=== PATIENT | male | born 1950 | race Caucasian/White ===

== ENCOUNTER 2016-07-20 15:38 | Inpatient (IN) | payer MEDICARE, OTHER ==
[2016-07-20] MEDS ORDERED: 0.9 % SODIUM CHLORIDE 1,000 ML BAG IV ONE (15:46)
--- NOTE | 2016-07-20 15:46 | Emergency Department Record ---
History of Present Illness - General Chief complaint: Nausea, Vomiting, Diarrhea Stated complaint: VOMITING,NAUSEA Time Seen by Provider: 07/20/16 15:44 Source: Patient, RN notes reviewed - History of Present Illness MD complaint: Vomiting - Related Data Home Medications Medication Instructions Recorded Confirmed Last Taken Aspirin [Ecotrin] 325 mg PO DAILY 11/27/14 01/31/16 1 Day Ago Guar Gum [Fiber] 2 gm PO DAILY 11/27/14 01/31/16 1 Day Ago Multivitamin [Multi-Vitamin Daily] 1 each PO DAILY 11/27/14 01/31/16 1 Day Ago Vitamin E (Dl,Tocopheryl Acet) 1,000 unit PO DAILY 11/27/14 01/31/16 1 Day Ago [Vitamin E] Cholecalciferol (Vitamin D3) 50,000 unit PO Q4WEEK cap 10/12/15 01/31/16 1 Day Ago [Vitamin D3] Lisinopril [Zestril] 10 mg PO QD tab 04/14/16 Unknown Allergies Allergy/AdvReac Type Severity Reaction Status Date / Time amoxicillin [AMOXICILLIN] Allergy Severe NAUSEA AND Unverified 04/14/16 08:53 VOMITING Past Medical History - SOCIAL HISTORY Smoking Status: Never smoker Drug Use: None - RESPIRATORY Hx Respiratory Disorders: Yes Hx Pneumonia: Yes - CARDIOVASCULAR Hx Cardio Disorders: Yes Hx Hypertension: Yes - NEURO Hx Neuro Disorders: No 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, 2002, 2007) - GI Hx GI Disorders: Yes Hx Diverticulitis: Yes Hx Hiatal Hernia: Yes - Hx Genitourinary Disorders: No Hx Prostate Problems: Yes (BPH) Hx Renal Disease: Yes (Poor RF 12/2015, but better now (dehydration)) - ENDOCRINE Hx Endocrine Disorders: No - MUSCULOSKELETAL Hx Musculoskeletal Disorders: No - PSYCH Hx Psych Problems: No - HEMATOLOGY/ONCOLOGY Hx Hematology/Oncology Disorders: No Family Medical History Hx Diabetes: Mother, Grandparents Hx Stroke: Mother Disposition Forms: Patient Portal Access
[2016-07-20 16:17] LABS: HEMATOCRIT 33.6 % (42.0-52.0); HEMOGLOBIN 11.1 gm/dl (14.0-18.0); MEAN CELL VOLUME 90.6 fl (81-97); MEAN CORPUSCULAR HEMOGLOBIN 29.9 pg (27-33); MEAN PLATELET VOLUME 10.6 fl (7.4-10.4); PLATELET COUNT 169 K/uL (130-400); RED BLOOD COUNT 3.71 M/uL (4.40-5.70); RED CELL DISTRIBUTION WIDTH 13.1 % (11.5-14.5); URINE APPEARANCE CLEAR; URINE BILIRUBIN NEGATIVE (NEGATIVE); URINE BLOOD TRACE-I (NEGATIVE); URINE COLOR YELLOW; URINE GLUCOSE (UA) NEGATIVE (NEGATIVE); URINE KETONE NEGATIVE (NEGATIVE); URINE LEUKOCYTE ESTERASE NEGATIVE (NEGATIVE); URINE NITRITE NEGATIVE (NEGATIVE); URINE UROBILINOGEN 0.2 E.U./dL (0.20 - 1.00); WHITE BLOOD COUNT W/O DIFF 7.1 K/uL (4.2-12.2)
--- NOTE | 2016-07-20 16:18 | Emergency Department Record ---
History of Present Illness - General Chief complaint: Nausea, Vomiting, Diarrhea Stated complaint: VOMITING,NAUSEA Time Seen by Provider: 07/20/16 15:44 Source: Patient, RN notes reviewed Mode of Arrival: EMS - History of Present Illness Initial comments: vomiting times twenty with total body aches and headache and no specific chest pain. Patient also has a cough. No diarhea , No trauma and balance was off and weak and could not walk to the bathroom and ambulance called. EMS gave him zofran and the nausea is better. Still very weak. Patient has had multiple colon surgeries with colostomy and reversal 5 years ago MD complaint: Vomiting Onset/Timin -: Days(s) Description of Vomiting: Watery Location: Diffuse, Epigastric Severity scale (1-10): 8 Quality: Aching Consistency: Constant Improves with: None - Related Data Home Medications Medication Instructions Recorded Confirmed Last Taken Aspirin [Ecotrin] 325 mg PO DAILY 11/27/14 07/20/16 1 Day Ago Guar Gum [Fiber] 2 gm PO DAILY 11/27/14 07/20/16 1 Day Ago Multivitamin [Multi-Vitamin Daily] 1 each PO DAILY 11/27/14 07/20/16 1 Day Ago Vitamin E (Dl,Tocopheryl Acet) 1,000 unit PO DAILY 11/27/14 07/20/16 1 Day Ago [Vitamin E] Cholecalciferol (Vitamin D3) 50,000 unit PO Q4WEEK cap 10/12/15 07/20/16 1 Day Ago [Vitamin D3] Lisinopril [Zestril] 10 mg PO QD tab 04/14/16 07/20/16 1 Day Ago Allergies Allergy/AdvReac Type Severity Reaction Status Date / Time amoxicillin [AMOXICILLIN] Allergy Severe NAUSEA AND Verified 07/20/16 15:49 VOMITING Travel Screening - Travel/Exposure Within Last 30 Days Have you traveled within the last 30 days?: No - Travel/Exposure Within Last Year Have you traveled outside the [place] in the last year?: No - Additonal Travel Details Have you been exposed to anyone with a communicable illness?: No - Travel Symptoms Symptom Screening: None Review of Systems Reviewed: No additional complaints except as noted below Constitutional: Reports: As per HPI, Chills, Malaise. Denies: Fever, Night sweats, Weakness, Weight change Eyes: Reports: As per HPI. Denies: Eye discharge, Eye pain, Photophobia, Vision change ENT: Reports: As per HPI, Congestion. Denies: Dental pain, Ear pain, Epistaxis , Hearing loss, Throat pain Respiratory: Reports: As per HPI, Cough. Denies: Dyspnea, Hemoptysis, Stridor, Wheezes Cardiovascular: Reports: As per HPI. Denies: Arrhythmia, Chest pain, Dyspnea on exertion, Edema, Murmurs, Orthopnea, Palpitations, Paroxysmal nocturnal dyspnea, Rheumatic Fever, Syncope Endocrine: Reports: As per HPI, Fatigue. Denies: Heat or cold intolerance, Polydipsia, Polyuria Gastrointestinal: Reports: As per HPI, Abdominal pain, Vomiting. Denies: Constipation, Diarrhea, Hematemesis, Hematochezia, Melena, Nausea Genitourinary: Reports: As per HPI. Denies: Dysuria, Frequency, Hematuria, Incontinence, Retention, Testicular pain, Testicular mass, Urgency Musculoskeletal: Reports: As per HPI. Denies: Arthralgia, Back pain, Gout, Joint swelling, Myalgia, Neck pain Skin: Reports: As per HPI. Denies: Bruising, Change in color, Change in hair/ nails, Lesions, Pruritus, Rash Neurological: Reports: As per HPI. Denies: Abnormal gait, Confusion, Headache, Numbness, Paresthesias, Seizure, Tingling, Tremors, Vertigo, Weakness Psychiatric: Reports: As per HPI. Denies: Anxiety, Auditory hallucinations, Depression, Homicidal thoughts, Suicidal thoughts, Visual hallucinations Hematological/Lymphatic: Reports: As per HPI. Denies: Anemia, Blood Clots, Easy bleeding, Easy bruising, Swollen glands Past Medical History - SOCIAL HISTORY Smoking Status: Never smoker Drug Use: None - RESPIRATORY Hx Respiratory Disorders: Yes Hx Pneumonia: Yes - CARDIOVASCULAR Hx Cardio Disorders: Yes Hx Hypertension: Yes - NEURO Hx Neuro Disorders: No 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, 2002, 2007) - GI Hx GI Disorders: Yes Hx Diverticulitis: Yes Hx Hiatal Hernia: Yes - Hx Genitourinary Disorders: No Hx Prostate Problems: Yes (BPH) Hx Renal Disease: Yes (Poor RF 12/2015, but better now (dehydration)) - ENDOCRINE Hx Endocrine Disorders: No - MUSCULOSKELETAL Hx Musculoskeletal Disorders: No - PSYCH Hx Psych Problems: No - HEMATOLOGY/ONCOLOGY Hx Hematology/Oncology Disorders: No Family Medical History Hx Diabetes: Mother, Grandparents Hx Stroke: Mother Physical Exam - General General Appearance: Alert, Oriented x3, Cooperative, No acute distress - Head Head exam: Normal inspection - Eye Eye exam: Normal appearance, PERRL Pupils: Normal accommodation - ENT ENT exam: Mucous membranes dry, Normal external ear exam, TM's normal bilaterally Ear exam: Normal external inspection. negative: External canal tenderness Nasal Exam: Normal inspection. negative: Discharge, Sinus tenderness Mouth exam: Normal external inspection, Tongue normal Teeth exam: Normal inspection. negative: Dental caries Throat exam: Normal inspection. negative: Tonsillar erythema, Tonsillar exudate - Neck Neck exam: Normal inspection, Full ROM. negative: Tenderness - Respiratory Respiratory exam: Normal lung sounds bilaterally. negative: Respiratory distress - Cardiovascular Cardiovascular Exam: Regular rate, Normal rhythm, Normal heart sounds - GI/Abdominal GI/Abdominal exam: Soft, Normal bowel sounds, Distended, Tenderness. negative: Guarding, Rebound, Rigid - Rectal Rectal exam: Deferred - exam: Deferred - Extremities Extremities exam: Normal inspection, Full ROM, Normal capillary refill. negative: Tenderness - Back Back exam: Reports: Normal inspection, Full ROM. Denies: Muscle spasm, Rash noted, Tenderness - Neurological Neurological exam: Alert, Normal gait, Oriented X3, Reflexes normal - Psychiatric Psychiatric exam: Normal affect, Normal mood - Skin Skin exam: Dry, Intact, Normal color, Warm Course Vital Signs 07/20/16 15:42 Temperature 98.5 F Pulse Rate 114 H Respiratory 20 Rate Blood Pressure 144/74 Pulse Ox [address] Dean assistant operator at [facility] and he recommended cautious hydration and stopping lisinopril and controlling BP with clonidine0.1mg every 8 hours P) and hydralizine 10 mg every 8 hours if BP greater than 160/90 - Reevaluation(s) Reevaluation #1: Discussed case with Beatriz and will admit to Dr. Gaitan 07/20/16 17:30 07/20/16 17:33 Medical Decision Making - Data Complexity MDM Data: Labs Ordered and/or Reviewed (creat 4.1 bun 55), X-Ray Ordered and/or Reviewed (chest xray neg per TR[facility], Abd neg per Trish CT head) - Lab Data Result diagrams: 07/20/16 16:00 07/20/16 16:00 Disposition Clinical Impression: Vomiting Qualifiers: Vomiting type: unspecified Vomiting Intractability: non-intractable Nausea presence: with nausea Qualified Code(s): R11.2 - Nausea with vomiting, unspecified Chronic renal failure Qualifiers: Chronic kidney disease stage: stage 4 (severe) Qualified Code(s): N18.4 - Chronic kidney disease, stage 4 (severe) Pancreatitis Qualifiers: Chronicity: acute Pancreatitis type: unspecified pancreatitis type Acute pancreatitis complication: unspecified Qualified Code(s): K85.90 - Acute pancreatitis without necrosis or infection, unspecified Forms: Patient Portal Access
[2016-07-20 16:23] LABS: URINE EPITHELIAL CELLS NONE SEEN (FEW); URINE WBC NONE SEEN (0-2/hpf)
[2016-07-20 16:28] LABS: PLATELET ESTIMATE NORMAL (NORMAL)
[2016-07-20 16:39] LABS: ALBUMIN 4.3 gm/dL (3.5-5.0); BILIRUBIN,TOTAL 0.3 mg/dL (0.2-1.3); CREATININE 4.1 mg/dL (0.66-1.25); TOTAL PROTEIN 6.9 gm/dL (6.3-8.2)
[2016-07-20 16:47] LABS: INFLUENZA A NEGATIVE (NEGATIVE); INFLUENZA B NEGATIVE (NEGATIVE)
[2016-07-20] MEDS ORDERED: 0.9 % SODIUM CHLORIDE 1000ML 1,000 ML IV PRN (17:33)
[2016-07-20] MEDS ORDERED: ACETAMINOPHEN 500 MG TABLET PO PRN (17:33)
[2016-07-20] MEDS: CLONIDINE HCL 0.1 MG TABLET PO SCH (22:10)
[2016-07-20] MEDS: TAMSULOSIN HCL 0.4 MG CAP.ER.24H PO SCH (22:10)
[2016-07-21] MEDS: ONDANSETRON HCL IV 4 MG/2 ML VIAL IVP PRN (02:34)
[2016-07-21] MEDS: ACETAMINOPHEN 325 MG TAB PO PRN ×3 (02:37→20:37)
[2016-07-21] MEDS: PANTOPRAZOLE SODIUM 40 MG TABLET PO SCH (06:17)
[2016-07-21] MEDS: CLONIDINE HCL 0.1 MG TABLET PO SCH ×3 (06:17→22:20)
[2016-07-21 06:49] LABS: ANION GAP 14.1 (7-16); CARBON DIOXIDE 17.9 mmol/L (22-30); CREATININE 4.3 mg/dL (0.66-1.25)
--- NOTE | 2016-07-21 07:16 | History & Physical ---
History of Present Illness - Date of Service Date of Service for History & Physical: 07/21/16 - History of Present Illness Admitting Diagnosis: vomiting. pancreatitis. renal failure. dehyration. possible viral infection History of Present Illness: 66yo male with CC of intractable nausea with vomiting. He has a history of smoking, Polycystic kidney disease, CKD stage 4, CVA, TIAx3, HTN, colon resection with colostomy reversal, T2DM, BPH. Patient presented to the ED yesterday evening complaining of severe nausea and vomiting. Stated he vomited or dry heaved at least 20 times yesterday. He reported generalized body aches. He was worried he was dehydrated and had his bring him in to the ED While in the ED, patient had improvement in nausea with zofran 4mg IV. CMP showed baseline renal function with BUN of 53 and Cr of 4.3 eGFR of 16. Lipase elevated at 469 but no abdominal pain. He was started on gentle IV hydration with NS at 50cc/hr. CXR negative; Head CT showed mild membrane thickening of the ethmoid and sphenoid sinuses; Abominal XR showed moderate stool in colon but no evidence of dilated bowel loops or obstruction. Influenza panel negative. UA with protein but no signs of infection. Dr. Avila nephrology filling station attendant for Dr. Youngblood was contacted by Ed physician. He recommended gentle fluid resuscitation with IV NS run at 50cc/hr for 1 liter, discontinuing lisinopril and using clonidine for BP control. Patient was admitted for intractable nausea/ vomiting. 07/21/16- Patient states he is feeling much better today. His generalized body aches have improved. He does still have a slight generalized headache but has improved with tylenol. He spiked a fever through the night of tmax 101 but has resolved this morning with tylenol as well. He is no longer feeling nauseated but is not really feeling hungry. He has been tolerating PO water quite well. He is going to try some jello this afternoon. Continues to deny abdominal pain or cramping. Has not had BM today but had a normal BM yesterday and then did not eat for the rest of yesterday. PCP: [facility] Nephrology: Dr. Youngblood, [facility] Travel Screening - Travel/Exposure Within Last 30 Days Have you traveled within the last 30 days?: No - Travel/Exposure Within Last Year Have you traveled outside the [place] in the last year?: No - Additonal Travel Details Have you been exposed to anyone with a communicable illness?: No - Travel Symptoms Symptom Screening: None Review of Systems Constitutional: Reports: As per HPI, Chills, Malaise. Denies: Fever, Night sweats, Weakness, Weight change Eyes: Reports: As per HPI. Denies: Eye discharge, Eye pain, Photophobia, Vision change ENT: Reports: As per HPI, Congestion. Denies: Dental pain, Ear pain, Epistaxis , Hearing loss, Throat pain Respiratory: Reports: As per HPI, Cough. Denies: Dyspnea, Hemoptysis, Stridor, Wheezes Cardiovascular: Reports: As per HPI. Denies: Arrhythmia, Chest pain, Dyspnea on exertion, Edema, Murmurs, Orthopnea, Palpitations, Paroxysmal nocturnal dyspnea, Rheumatic Fever, Syncope Endocrine: Reports: As per HPI, Fatigue. Denies: Heat or cold intolerance, Polydipsia, Polyuria Gastrointestinal: Reports: As per HPI, Abdominal pain, Vomiting. Denies: Constipation, Diarrhea, Hematemesis, Hematochezia, Melena, Nausea Genitourinary: Reports: As per HPI. Denies: Dysuria, Frequency, Hematuria, Incontinence, Retention, Testicular pain, Testicular mass, Urgency Musculoskeletal: Reports: As per HPI. Denies: Arthralgia, Back pain, Gout, Joint swelling, Myalgia, Neck pain Skin: Reports: As per HPI. Denies: Bruising, Change in color, Change in hair/ nails, Lesions, Pruritus, Rash Neurological: Reports: As per HPI. Denies: Abnormal gait, Confusion, Headache, Numbness, Paresthesias, Seizure, Tingling, Tremors, Vertigo, Weakness Psychiatric: Reports: As per HPI. Denies: Anxiety, Auditory hallucinations, Depression, Homicidal thoughts, Suicidal thoughts, Visual hallucinations Hematological/Lymphatic: Reports: As per HPI. Denies: Anemia, Blood Clots, Easy bleeding, Easy bruising, Swollen glands Past Medical History - SOCIAL HISTORY Smoking Status: Former smoker Alcohol Use: Occassional Drug Use: None - RESPIRATORY Hx Respiratory Disorders: Yes Hx Asthma: No Hx Bronchitis: No Hx COPD: No Hx Dyspnea: No Hx Pneumonia: Yes Hx Pulmonary Embolism: No Hx Sleep Apnea: No Hx of CPAP: No - CARDIOVASCULAR Hx Cardio Disorders: Yes Hx Abnormal EKG: No Hx Cardiac Cath: No Hx Chest Pain: No Hx CHF: No Hx Deep Vein Thrombosis: No Hx Edema: No Hx Heart Attack: No Hx Hypertension: Yes Hx Hypotension: No Hx Irregular Heartbeat: No Hx Palpitations: No Hx Pacemaker/Defib: No Hx Vascular Disease: No - NEURO Hx Neuro Disorders: Yes Hx Brain Tumor: No Hx CVA: Yes Hx Dementia: No Hx Dizziness: No Hx Headaches: No Hx Neuropathy: No Hx Parkinson's Disease: No Hx Seizures: No Hx Speech Problem: No 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, 2002, 2007) - GI Hx GI Disorders: Yes Hx Abdominal Pain: No Hx Celiac Disease: No Hx Crohn's Disease: No Hx Diverticulitis: Yes Hx GI Bleed: No Hx Reflux: No Hx Hepatitis/Jaundice: No Hx Hiatal Hernia: Yes Hx Irritable Bowel: No Hx Liver Disease: No Hx Nausea/Vomiting: No Hx Obstructive Bowel: No Hx Pancreatitis: No Hx Rectal Bleeding: No Hx Ulcer: No Hx Wt Loss/Wt Gain: No Hx of Polyps: No - Hx Genitourinary Disorders: Yes Hx Bladder Problem: Yes Hx Dialysis: No Hx Kidney Stones: Yes Hx Prostate Problems: Yes (BPH) Hx Renal Disease: Yes (Poor RF 12/2015, but better now (dehydration)) Hx UTI: No - ENDOCRINE Hx Endocrine Disorders: Yes Hx Diabetes: Yes Hx Thyroid Disease: No - MUSCULOSKELETAL Hx Musculoskeletal Disorders: No - PSYCH Hx Psych Problems: No - HEMATOLOGY/ONCOLOGY Hx Hematology/Oncology Disorders: No Family Medical History Any Significant Family History?: Yes Hx Diabetes: Mother, Grandparents Hx Stroke: Mother H&P Meds/Allergies - Allergies Allergies: Allergies Allergy/AdvReac Type Severity Reaction Status Date / Time amoxicillin [AMOXICILLIN] Allergy Severe NAUSEA AND Verified 07/20/16 18:35 VOMITING - Home Medications Home Medications Medication Instructions Recorded Confirmed Last Taken Aspirin [Ecotrin] 325 mg PO DAILY 11/27/14 07/20/16 1 Day Ago Guar Gum [Fiber] 2 gm PO DAILY 11/27/14 07/20/16 1 Day Ago Multivitamin [Multi-Vitamin Daily] 1 each PO DAILY 11/27/14 07/20/16 1 Day Ago Vitamin E (Dl,Tocopheryl Acet) 1,000 unit PO DAILY 11/27/14 07/20/16 1 Day Ago [Vitamin E] Cholecalciferol (Vitamin D3) 50,000 unit PO Q4WEEK cap 10/12/15 07/20/16 1 Day Ago [Vitamin D3] Lisinopril [Zestril] 10 mg PO QD tab 04/14/16 07/20/16 1 Day Ago - Active Medications Active Medications: Current Medications Acetaminophen (Tylenol 500mg Tab) 500 mg PO Q6H PRN PRN Reason: PAIN/TEMP Acetaminophen (Tylenol 325mg) 650 mg PO Q6H PRN PRN Reason: Fever Last Admin: 07/21/16 02:37 Dose: 650 mg Clonidine HCl (Catapres) 0.1 mg PO Q8HR [facility] Last Admin: 07/21/16 06:17 Dose: 0.1 mg Clopidogrel Bisulfate (Plavix) 75 mg PO DAILY [facility] Non-Formulary Medication (Pioglitazone Hcl [Actos]) 30 mg PO DAILY [facility] Ondansetron HCl (Zofran) 4 mg IVP Q6H PRN PRN Reason: NAUSEA Last Admin: 07/21/16 02:34 Dose: 4 mg Pantoprazole Sodium (Protonix) 40 mg PO DAILYAC [facility] Last Admin: 07/21/16 06:17 Dose: 40 mg Tamsulosin HCl (Flomax) 0.4 mg PO BID [facility] Last Admin: 07/20/16 22:10 Dose: 0.4 mg Physical Exam - Vital Signs Vital Signs: Vital Signs - Last 24 Hrs Temp Pulse Pulse Resp BP BP Pulse Ox 07/21/16 05:58 98.2 F 07/21/16 05:06 100.2 F H 94 H 14 119/63 94 L 07/21/16 04:21 99.0 F 07/21/16 02:00 101.1 F H 103 H 18 131/65 93 L 07/20/16 22:00 111 H 24 157/78 94 L 07/20/16 21:00 111 H 07/20/16 18:26 22 - General General Appearance: Alert, Oriented x3, Cooperative, No acute distress - Head Head exam: Normal inspection - Eye Eye exam: Normal appearance, PERRL Pupils: Normal accommodation - ENT ENT exam: Mucous membranes dry, Normal external ear exam, TM's normal bilaterally Ear exam: Normal external inspection. negative: External canal tenderness Nasal Exam: Normal inspection. negative: Discharge, Sinus tenderness Mouth exam: Normal external inspection, Tongue normal Teeth exam: Normal inspection. negative: Dental caries Throat exam: Normal inspection. negative: Tonsillar erythema, Tonsillar exudate - Neck Neck exam: Normal inspection, Full ROM. negative: Tenderness - Respiratory Respiratory exam: Normal lung sounds bilaterally. negative: Respiratory distress - Cardiovascular Cardiovascular Exam: Regular rate, Normal rhythm, Normal heart sounds - GI/Abdominal GI/Abdominal exam: Soft, Normal bowel sounds. negative: Distended, Guarding, Rebound, Rigid - Rectal Rectal exam: Deferred - exam: Deferred - Extremities Extremities exam: Normal inspection, Full ROM, Normal capillary refill. negative: Tenderness - Back Back exam: Reports: Normal inspection, Full ROM. Denies: Muscle spasm, Rash noted, Tenderness - Neurological Neurological exam: Alert, Normal gait, Oriented X3, Reflexes normal - Psychiatric Psychiatric exam: Normal affect, Normal mood - Skin Skin exam: Dry, Intact, Normal color, Warm Results - Labs Result Diagrams: 07/22/16 07:10 07/22/16 07:10 Labs Last 24 Hours: Laboratory Results - last 24 hr 07/20/16 07/20/16 07/21/16 21:00 22:00 06:15 Sodium 137 Potassium 4.7 Chloride 105 Carbon Dioxide 17.9 L Anion Gap 14.1 BUN 53 H Creatinine 4.3 H Estimated GFR 15 POC Glucose Cancelled 134 H Random Glucose 105 Calcium 8.9 VTE H&P Assessment - Risk for VTE Risk for VTE: Yes Risk Level: Low Risk Assessment Date: 07/21/16 Risk Assessment Time: 10:00 VTE Orders Placed or Will Be Placed: No VTE Reason for No Prophylaxis: Not Indicated (patient currently on plavix) Plan - Inpatient Certification Inpatient Certification: Admit to inpatient care: Based on my medical assessment, after consideration of patient's risk factors (age, co-morbidities and patient presenting symptoms and acuity), I expect that this patient will remain in the hospital greater than or equal to two midnights and that the services needed warrant inpatient care because: Patient Risk Factors: [age, intractable vomiting, acute on chronic renal insufficiency,pancreatitis ] Estimated length of stay: [48-72] The patient may reasonably be expected to be discharged or transferred to a hospital within 96 hours after admission to [facility]. Services needed: [IV fluids, IV anti-emetics] Post hospital care (if known): [] I certify that my determination is in accordance with my understanding of Medicare requirements for reasonable and necessary inpatient services. 07/21/16 07:10 - Detailed Diagnosis and Plan (1) Intractable nausea and vomiting Current Visit: Yes Status: Acute Base Code: R11.2 - NAUSEA WITH VOMITING , UNSPECIFIED Comment: 07/21/16- Improved with zofran. Tolerating clear liquids. Patient unable to have CT scan with contrast 2/2 CKD. Abdominal Xr showed moderate stool but no evidence of obstruction. Lipase was elevated at 469 but denies abdominal pain. Patient did become febrile through the night with tmax of 101 suggesting possible viral gastroenteritis. differential includes pancreatitis -continue zofran 4mg IV q8H prn nausea -continue clear liquid diet and advance as tolerating -continue monitoring vitals q8H -continue tylenol 650mg PO q6H prn fever. Avoid NSAIDs -repeat labs in the morning (2) Chronic renal failure Current Visit: Yes Status: Acute Qualifiers: Chronic kidney disease stage: stage 4 (severe) Qualified Code(s): N18.4 - Chronic kidney disease, stage 4 (severe) Base Code: N18.9 - CHRONIC KIDNEY DISEASE, UNSPECIFIED Comment: 07/21/16- CKD 2/2 PCKD and follows with Dr. Youngblood at [facility] nephrology. ED physician spoke with Dr. Dean filling station attendant for [employer]. Dr Villagran recommended gentle IV hydration with NS run at 50cc/hr for 1 liter with reassessment of volume status, holding lisinopril, controlling bp with clonidine and hydralazine if necessary, and obtaining a renal u/s to eval for any potential obstruction. BUN/Cr and eGFR stable at patient's baeline at 53, 4.3 and 15 respectively -renal u/s ordered -hold lisinopril -avoid nsaids and other nephrotoxic agents -clonididne 0.1mg pO q8H. Hydralazine 10mg PO q6H prn BP >160/90 -obtain weight daily -labs qam (3) Pancreatitis Current Visit: Yes Status: Acute Qualifiers: Chronicity: acute Pancreatitis type: unspecified pancreatitis type Acute pancreatitis complication: unspecified Qualified Code(s): K85.90 - Acute pancreatitis without necrosis or infection, unspecified Base Code: K85.90 - ACUTE PANCREATITIS WITHOUT NECROSIS OR INFECTION, UNSP Comment: 07/21/16- Lipase eleavated at 469. Patient denies abdominal pain but has been vomiting. Eleavted lipase my be inflammatory 2/2 vomiting. tolerating clear liquids -continue clear liquids as tolerating -continue to assess need for fluid rescuscitation vs risk of fluid overload (4) Full code status Current Visit: Yes Status: Acute Base Code: Z78.9 - OTHER SPECIFIED HEALTH STATUS Comment: 07/21/16- Patient is full code status (5) DVT prophylaxis Current Visit: Yes Status: Acute Base Code: [id number] - Comment: 07/21/16- Patient high risk for VTE with history but on plavix daily -will add SCD's while in bed -continue plavix
[2016-07-21 07:30] LABS: HEMATOCRIT 28.3 % (42.0-52.0); MEAN CELL VOLUME 92.8 fl (81-97); MEAN CORPUSCULAR HEMOGLOBIN 29.5 pg (27-33); MEAN CORPUSCULAR HGB CONC 31.8 g/dl (32-36); MEAN PLATELET VOLUME 10.5 fl (7.4-10.4); PLATELET COUNT 146 K/uL (130-400); RED BLOOD COUNT 3.05 M/uL (4.40-5.70); RED CELL DISTRIBUTION WIDTH 13.4 % (11.5-14.5); WHITE BLOOD COUNT W/O DIFF 4.2 K/uL (4.2-12.2)
--- NOTE | 2016-07-21 07:32 | RADIOLOGY REPORT ---
EXAM: ABDOMEN, TWO VIEWS HISTORY: VOMITING AND HEADACHE. TECHNIQUE: Supine and upright views of the abdomen were obtained. Comparison: None. FINDINGS: Nonspecific bowel gas pattern with no prominently dilated air filled loops of bowel evident. Moderate stool in the colon. Very few, if any, air fluid levels and no free air identified. IMPRESSION: MODERATE STOOL IN THE COLON. NO FREE AIR EVIDENT. JOB NUMBER: [id number] MTDD
--- NOTE | 2016-07-21 07:34 | RADIOLOGY REPORT ---
EXAM: CHEST, TWO VIEWS HISTORY: VOMITING AND HEADACHE, BODY ACHES. TECHNIQUE: PA and lateral views of the chest were obtained. Comparison: Two view chest dated 09/28/00 that has been scanned into PACS. FINDINGS: The heart size is normal. The lungs appear expanded with no acute infiltrate seen. The lungs do appear somewhat hyperinflated which could represent some underlying COPD. No pleural effusion or pneumothorax evident. IMPRESSION: 1. THE LUNGS APPEAR SOMEWHAT HYPERINFLATED. 2. NO ACUTE INFILTRATE IDENTIFIED. JOB NUMBER: [id number] [facility]
--- NOTE | 2016-07-21 07:38 | CT SCAN REPORT ---
EXAM: HEAD CT WITHOUT CONTRAST HISTORY: VOMITING WITH HEADACHE. TECHNIQUE: Axial CT scan of the head was performed without IV contrast. Comparison: Head CT dated 01/31/16. FINDINGS: No definite acute intracranial hemorrhage is identified. No focal mass effect or midline shift apparent. There has probably been cataract surgery involving the right eye. Mild deviation of the nasal septum to the right. Membrane thickening in the ethmoids and sphenoid sinuses. No depressed calvarial fracture is evident. Mild atrophy in the frontal regions as before. IMPRESSION: 1. MILD FRONTAL LOBE ATROPHY BEFORE. 2. NO ACUTE INTRACRANIAL HEMORRHAGE OR FOCAL MASS EFFECT EVIDENT. 3. MILD MEMBRANE THICKENING IN THE ETHMOID AND SPHENOID SINUSES. JOB NUMBER: [id number] [facility]
[2016-07-21 07:44] LABS: PLATELET ESTIMATE NORMAL (NORMAL)
[2016-07-21] MEDS: CLOPIDOGREL 75MG TABLET PO SCH (09:40)
[2016-07-21] MEDS: PIOGLITAZONE HCL 15 MG TABLET PO SCH (09:44)
[2016-07-21] MEDS: TAMSULOSIN HCL 0.4 MG CAP.ER.24H PO SCH ×2 (09:44→22:20)
[2016-07-21] MEDS ORDERED: PANTOPRAZOLE SODIUM 20 MG PO SCH (10:00)
--- NOTE | 2016-07-21 12:26 | ULTRASOUND REPORT ---
EXAM: ULTRASOUND OF THE KIDNEYS HISTORY: THE PATIENT HAS A HISTORY OF POLYCYSTIC KIDNEY DISEASE. PATIENT HAS ACUTE/CHRONIC RENAL INSUFFICIENCY. TECHNIQUE: Real-time montiel scale and Duplex Doppler ultrasound examination of the bilateral kidneys was performed. Comparison: CT scan of the abdomen and pelvis dated 09/08/15. FINDINGS: The right kidney measures 13.7 cm in length x 6.7 cm in AP dimension x 5.3 cm in transverse dimension. The left kidney measures 13.8 cm in length x 6.6 cm in AP dimension x 5.5 cm in transverse dimension. Numerous cysts are identified within both kidneys consistent with the patient's history of polycystic kidney disease. The largest cyst within the right kidney measures approximately 5.8 cm in diameter and is located within the superior pole. The largest cyst within the left kidney measures 3.9 cm in diameter and is located within the inferior pole. The cysts appear simple without evidence of debris or wall thickening. Calculi are noted within both kidneys. The largest calculus within the right kidney measures 1.3 cm in diameter. The largest calculus within the left kidney measures about 1 cm in diameter. There is no sonographic evidence of hydronephrosis or proximal hydroureter. The urinary bladder post void residual volume is 47.5 mm. This finding is within normal limits. The prostate volume is 36.4 ml. IMPRESSION: FINDINGS CONSISTENT WITH POLYCYSTIC KIDNEY DISEASE DISCUSSED ABOVE. THE CYSTS WITHIN BOTH KIDNEYS APPEAR TO BE SIMPLE WITHOUT EVIDENCE OF INTERNAL DEBRIS. INCREASED ECHOTEXTURE OF BOTH RENAL PARENCHYMA SUGGESTS MEDICAL RENAL DISEASE. JOB NUMBER: [id number] [facility]
[2016-07-22] MEDS: ONDANSETRON HCL IV 4 MG/2 ML VIAL IVP PRN (04:29)
[2016-07-22] MEDS: PANTOPRAZOLE SODIUM 40 MG TABLET PO SCH (07:01)
[2016-07-22] MEDS: CLONIDINE HCL 0.1 MG TABLET PO SCH (07:01)
[2016-07-22 07:49] LABS: BASO % 0.2 % (0-6); EOS % 0.2 % (0-6); GRAN % 79.4 % (47-80); HEMATOCRIT 28.6 % (42.0-52.0); HEMOGLOBIN 9.2 gm/dl (14.0-18.0); LYMPH % 9.7 % (16-45); MEAN CELL VOLUME 91.7 fl (81-97); MEAN CORPUSCULAR HGB CONC 32.2 g/dl (32-36); MEAN PLATELET VOLUME 10.7 fl (7.4-10.4); MONO % 10.5 % (0-9); PLATELET COUNT 139 K/uL (130-400); RED BLOOD COUNT 3.12 M/uL (4.40-5.70); RED CELL DISTRIBUTION WIDTH 13.2 % (11.5-14.5); WHITE BLOOD COUNT W/O DIFF 4.6 K/uL (4.2-12.2)
[2016-07-22 07:50] LABS: MEAN CORPUSCULAR HEMOGLOBIN 29.4 pg (27-33)
[2016-07-22 08:07] LABS: ALB/GLOB RATIO 1.5 (1.1-1.8); ALBUMIN 3.6 gm/dL (3.5-5.0); ANION GAP 16.8 (7-16); BILIRUBIN,TOTAL 0.25 mg/dL (0.2-1.3); CARBON DIOXIDE 17.2 mmol/L (22-30); CREATININE 4.3 mg/dL (0.66-1.25)
[2016-07-22] MEDS: PIOGLITAZONE HCL 15 MG TABLET PO SCH (10:17)
[2016-07-22] MEDS: TAMSULOSIN HCL 0.4 MG CAP.ER.24H PO SCH (10:18)
[2016-07-22] MEDS: CLOPIDOGREL 75MG TABLET PO SCH (10:18)
--- NOTE | 2016-07-22 10:41 | Discharge Summary ---
Providers Discharge Summary Date: 07/22/16 Date of admission: 07/20/16 18:01 Expected Date of Discharge: 07/22/16 Attending physician: DAYAN HODGE Primary care physician: DAYAN HODGE Physical Exam - Vital Signs Vital Signs: Vital Signs - Last 24 Hrs Temp Pulse Pulse Resp BP BP Pulse Ox 07/22/16 08:55 98.9 F 75 152/70 93 L 07/22/16 04:42 98.9 F 80 16 149/65 93 L 07/21/16 21:33 98.3 F 77 20 145/76 94 L 07/21/16 21:30 94 L 07/21/16 21:00 76 77 16 07/21/16 18:00 97.1 F L 78 16 111/62 95 07/21/16 14:00 98.1 F 87 18 142/58 93 L - General General Appearance: Alert, Oriented x3, Cooperative, No acute distress - Head Head exam: Normal inspection - Eye Eye exam: Normal appearance, PERRL Pupils: Normal accommodation - ENT ENT exam: Mucous membranes dry, Normal external ear exam, TM's normal bilaterally Ear exam: Normal external inspection. negative: External canal tenderness Nasal Exam: Normal inspection. negative: Discharge, Sinus tenderness Mouth exam: Normal external inspection, Tongue normal Teeth exam: Normal inspection. negative: Dental caries Throat exam: Normal inspection. negative: Tonsillar erythema, Tonsillar exudate - Neck Neck exam: Normal inspection, Full ROM. negative: Tenderness - Respiratory Respiratory exam: Normal lung sounds bilaterally. negative: Respiratory distress - Cardiovascular Cardiovascular Exam: Regular rate, Normal rhythm, Normal heart sounds - GI/Abdominal GI/Abdominal exam: Soft, Normal bowel sounds. negative: Distended, Guarding, Rebound, Rigid - Rectal Rectal exam: Deferred - exam: Deferred - Extremities Extremities exam: Normal inspection, Full ROM, Normal capillary refill. negative: Tenderness - Back Back exam: Reports: Normal inspection, Full ROM. Denies: Muscle spasm, Rash noted, Tenderness - Neurological Neurological exam: Alert, Normal gait, Oriented X3, Reflexes normal - Psychiatric Psychiatric exam: Normal affect, Normal mood - Skin Skin exam: Dry, Intact, Normal color, Warm Hospitalization - Hospitalization Admission Diagnosis: vomiting. pancreatitis. renal failure. dehyration. possible viral infection - Problem List/Discharge Diagnosis (1) Intractable nausea and vomiting Current Visit: Yes Status: Acute Base Code: R11.2 - NAUSEA WITH VOMITING , UNSPECIFIED Comment: 07/22/16- resolving. Patient tolerating clear liquids and some bland solids without emesis or abdominal pain. Patient unable to have CT scan with contrast 2/2 CKD. Abdominal Xr showed moderate stool but no evidence of obstruction. Lipase was up to 700 but back down to 469 continues to deny abdominal pain. Patient remained afebrile >24H. Likely, viral gastroenteritis differential includes pancreatitis -continue zofran 4mg PO q8H prn nausea -continue to advance diet as tolerating -continue tylenol 650mg PO q6H prn fever. Avoid NSAIDs -follow up with Mariia Gay PA-C on 08/02/16 at 10:40am (2) Chronic renal failure Current Visit: Yes Status: Acute Discharge Diagnosis: Chronic kidney disease stage: stage 4 (severe) Qualified Code(s): N18.4 - Chronic kidney disease, stage 4 (severe) Base Code: N18.9 - CHRONIC KIDNEY DISEASE, UNSPECIFIED Comment: 07/22/16- CKD 2/2 PCKD and follows with Dr. Youngblood at [facility] nephrology. BUN/Cr and eGFR stable at patient's [facility] at 50, 4.3 and 15 respectively. renal u/s showed findings consistent with PCKD with medical CKD with several calculi present but no evidence of hydronephrosis or pylonephritis. -continue to hold lisinopril until follow up appointment with nephrology -will have him continue clonidine 0.1mg PO q8H for hypertension -avoid nsaids and other nephrotoxic agents (3) Pancreatitis Current Visit: Yes Status: Acute Discharge Diagnosis: Chronicity: acute Pancreatitis type: unspecified pancreatitis type Acute pancreatitis complication: unspecified Qualified Code(s): K85.90 - Acute pancreatitis without necrosis or infection, unspecified Base Code: K85.90 - ACUTE PANCREATITIS WITHOUT NECROSIS OR INFECTION, UNSP Comment: 07/22/16- Lipase back down to 469 today. Patient continues to deny any abdominal pain. He is tolerating clear liquids and some bland solids without emesis. Eleavted lipase my be inflammatory 2/2 vomiting. -continue to advance diet as tolerating (4) Full code status Current Visit: Yes Status: Acute Base Code: Z78.9 - OTHER SPECIFIED HEALTH STATUS Comment: 07/22/16- Patient is full code status (5) DVT prophylaxis Current Visit: Yes Status: Acute Base Code: [id number] - Comment: 07/22/16- Patient high risk for VTE with history but on plavix daily -continue plavix -encouraged ambulation as tolerating - Hospitalization Course Disposition: Home, Self-Care Hospital Course: 66yo male with CC of intractable nausea with vomiting. He has a history of smoking, Polycystic kidney disease, CKD stage 4, CVA, TIAx3, HTN, colon resection with colostomy reversal, T2DM, BPH. Patient presented to the ED yesterday evening complaining of severe nausea and vomiting. Stated he vomited or dry heaved at least 20 times yesterday. He reported generalized body aches. He was worried he was dehydrated and had his bring him in to the ED While in the ED, patient had improvement in nausea with zofran 4mg IV. CMP showed baseline renal function with BUN of 53 and Cr of 4.3 eGFR of 16. Lipase elevated at 469 but no abdominal pain. He was started on gentle IV hydration with NS at 50cc/hr. CXR negative; Head CT showed mild membrane thickening of the ethmoid and sphenoid sinuses; Abominal XR showed moderate stool in colon but no evidence of dilated bowel loops or obstruction. Influenza panel negative. UA with protein but no signs of infection. Dr. Avila nephrology transitional care manager for Dr. Youngblood was contacted by Ed physician. He recommended gentle fluid resuscitation with IV NS run at 50cc/hr for 1 liter, discontinuing lisinopril and using clonidine for BP control. Patient was admitted for intractable nausea/ vomiting. 07/21/16- Patient states he is feeling much better today. His generalized body aches have improved. He does still have a slight generalized headache but has improved with tylenol. He spiked a fever through the night of tmax 101 but has resolved this morning with tylenol as well. He is no longer feeling nauseated but is not really feeling hungry. He has been tolerating PO water quite well. He is going to try some jello this afternoon. Continues to deny abdominal pain or cramping. Has not had BM today but had a normal BM yesterday and then did not eat for the rest of yesterday. 07/22/16-Patient continues to improve. He states he is feeling much better. Generalized aches have resolved. Slight headache but has improved as well. He is up and ambulating to the bathroom without assistance. Reports yellow urine that is about his baseline denies decreased urine output or pain with urination. He denies fevers or chills. Still tolearting clear liquids well and some solids without any nausea, vomiting or abdominal pain. No BM yet today but not feeling bloated or distended. Procedures: Imaging and X-Rays 07/21/16 07:05 RENAL [US] Stat Abnormal Labs: Abnormal Lab Results 07/20/16 07/21/16 07/21/16 Range/Units 22:00 06:15 06:15 RBC (4.40-5.70) M/uL Hgb (14.0-18.0) gm/dl Hct (42.0-52.0) % MCHC (32-36) g/dl MPV (7.4-10.4) fl Neutrophils % (47-80) % Lymphocytes % (16-45) % Monocytes % (0-9) % Carbon Dioxide 17.9 L (22-30) mmol/L Anion Gap (7-16) BUN 53 H (9-20) mg/dL Creatinine 4.3 H (0.66-1.25) mg/dL POC Glucose 134 H (70-110) mg/dL Random Glucose (70-110) mg/dL Total Protein (6.3-8.2) gm/dL Lipase 741 H (23-300) U/L 07/21/16 07/21/16 07/22/16 Range/Units 06:15 17:06 07:10 RBC 3.05 L 3.12 L (4.40-5.70) M/uL Hgb 9.0 L 9.2 L (14.0-18.0) gm/dl Hct 28.3 L 28.6 L (42.0-52.0) % MCHC 31.8 L (32-36) g/dl MPV 10.5 H 10.7 H (7.4-10.4) fl Neutrophils % 92.0 H (47-80) % Lymphocytes % 5.0 L 9.7 L (16-45) % Monocytes % 10.5 H (0-9) % Carbon Dioxide (22-30) mmol/L Anion Gap (7-16) BUN (9-20) mg/dL Creatinine (0.66-1.25) mg/dL POC Glucose 128 H (70-110) mg/dL Random Glucose (70-110) mg/dL Total Protein (6.3-8.2) gm/dL Lipase (23-300) U/L 07/22/16 Range/Units 07:10 RBC (4.40-5.70) M/uL Hgb (14.0-18.0) gm/dl Hct (42.0-52.0) % MCHC (32-36) g/dl MPV (7.4-10.4) fl Neutrophils % (47-80) % Lymphocytes % (16-45) % Monocytes % (0-9) % Carbon Dioxide 17.2 L (22-30) mmol/L Anion Gap 16.8 H (7-16) BUN 50 H (9-20) mg/dL Creatinine 4.3 H (0.66-1.25) mg/dL POC Glucose (70-110) mg/dL Random Glucose 111 H (70-110) mg/dL Total Protein 6.0 L (6.3-8.2) gm/dL Lipase 479 H (23-300) U/L Condition at Discharge: (2) Stable Discharge Medications - Discharge Medications Prescriptions: Ondansetron [Zofran Odt] 4 mg PO Q8H PRN #20 tab.rapdis PRN Reason: Nausea Home Medications: Ambulatory Orders Aspirin [Ecotrin] 325 mg PO DAILY 11/27/14 [Last Taken 1 Day Ago] Guar Gum [Fiber] 2 gm PO DAILY 11/27/14 [Last Taken 1 Day Ago] Multivitamin [Multi-Vitamin Daily] 1 each PO DAILY 11/27/14 [Last Taken 1 Day Ago] Vitamin E (Dl,Tocopheryl Acet) [Vitamin E] 1,000 unit PO DAILY 11/27/14 [Last Taken 1 Day Ago] Cholecalciferol (Vitamin D3) [Vitamin D3] 50,000 unit PO Q4WEEK cap 10/12/15 [ Last Taken 1 Day Ago] Ondansetron [Zofran Odt] 4 mg PO Q8H PRN #20 tab.rapdis 07/22/16 [Last Taken Unknown] Discharge Plan - Discharge Instructions Activity at Discharge: Resume Usual Activities As Tolerated Diet at Discharge: Advance to Usual Diet, Diabetic Diet Instructions: Renal Failure Diet (DC), Chronic Kidney Disease, Finisher Cold Rolling (GEN) Additional Instructions: Follow up with Dr. Youngblood. We will contact Fodr's office in [place] to get an appointment set up. Follow up with PCP, Mariia Gay PA-C on 08/02/16 at 10:40am. Continue to advance diet as tolerating May use zofran 4mg PO q8H for nausea as needed please call with any questions or concerns
== END 2016-07-22 14:50 | disposition home or self-care (01) | DRG 640 ==
LOC: ER 15:38 → MEDSURG 18:01
PROVIDERS: ADMIT Family Medicine; ATTEND Family Medicine
DX: E86.0 Dehydration (principal); K85.90 Acute pancreatitis without necrosis or infection, unspecified; N18.4 Chronic kidney disease, stage 4 (severe); R11.2 Nausea with vomiting, unspecified; Z78.9 Other specified health status; F17.200 Nicotine dependence, unspecified, uncomplicated; I10 Essential (primary) hypertension; Z86.73 Personal history of transient ischemic attack (TIA), and cerebral infarction without residual deficits; E11.9 Type 2 diabetes mellitus without complications
CPT/HCPCS: 36416; 70450; 71020; 74020; 76775; 80048; 80053; 80076; 81001; 82948; 83690; 85025; 85027; 87400; 94760; 96360; 96361; 99223; 99234; 99239; 99285; J2405; J7030

== ENCOUNTER 2016-09-03 16:32 | Emergency (ER) | payer MEDICARE, OTHER ==
[2016-09-03] MEDS ORDERED: METHYLPREDNISOLONE PF 125MG/VIAL IVP ONE (17:19)
[2016-09-03] MEDS ORDERED: IPRATROPIUM/ALBUTEROL (0.5MG/3MG) NEB INH ONE (17:19)
[2016-09-03 18:19] LABS: HEMATOCRIT 30.5 % (42.0-52.0); HEMOGLOBIN 9.8 gm/dl (14.0-18.0); MEAN CELL VOLUME 89.4 fl (81-97); MEAN CORPUSCULAR HEMOGLOBIN 28.7 pg (27-33); MEAN CORPUSCULAR HGB CONC 32.1 g/dl (32-36); MEAN PLATELET VOLUME 10.2 fl (7.4-10.4); PLATELET COUNT 125 K/uL (130-400); RED BLOOD COUNT 3.41 M/uL (4.40-5.70); RED CELL DISTRIBUTION WIDTH 13.6 % (11.5-14.5); WHITE BLOOD COUNT W/O DIFF 3.8 K/uL (4.2-12.2)
[2016-09-03 18:33] LABS: ANION GAP 11.7 (7-16); CARBON DIOXIDE 24.3 mmol/L (22-30); CREATININE 4.5 mg/dL (0.66-1.25)
--- NOTE | 2016-09-03 18:36 | Emergency Department Record ---
History of Present Illness - General Chief Complaint: Difficulty Breathing Stated Complaint: ALEX,CONGESTION Time Seen by Provider: 09/03/16 17:10 Source: Patient Mode of Arrival: Ambulatory Limitations: No limitations - History of Present Illness Initial Comments: pt has productive yellow cough, sob, body aches. pt was in hospital 3 weeks ago for n/v MD Complaint: Cough, Shortness of breath Onset/Timin -: Days(s) Severity: Moderate Severity scale (1-10): 6 Quality: Aching Consistency: Constant Improves With: Nothing Worsens With: Coughing Context: Recent URI Associated Symptoms: Cough, Sputum production Treatments Prior to Arrival: None - Related Data Home Medications Medication Instructions Recorded Confirmed Last Taken Aspirin [Ecotrin] 325 mg PO DAILY 11/27/14 09/03/16 1 Day Ago Guar Gum [Fiber] 2 gm PO DAILY 11/27/14 09/03/16 1 Day Ago Multivitamin [Multi-Vitamin Daily] 1 each PO DAILY 11/27/14 09/03/16 1 Day Ago Vitamin E (Dl,Tocopheryl Acet) 1,000 unit PO DAILY 11/27/14 09/03/16 1 Day Ago [Vitamin E] Cholecalciferol (Vitamin D3) 50,000 unit PO Q4WEEK cap 10/12/15 09/03/16 1 Day Ago [Vitamin D3] Finasteride 5 mg PO QD tab 08/02/16 09/03/16 1 Day Ago Previous Rx's Medication Instructions Recorded Ondansetron [Zofran Odt] 4 mg PO Q8H PRN #20 tab.rapdis 07/22/16 Oseltamivir Phosphate [Tamiflu] 75 mg PO DAILY #4 capsule 09/03/16 Allergies Allergy/AdvReac Type Severity Reaction Status Date / Time amoxicillin [AMOXICILLIN] Allergy Severe NAUSEA AND Verified 09/03/16 17:01 VOMITING Travel Screening - Travel/Exposure Within Last 30 Days Have you traveled within the last 30 days?: No - Travel/Exposure Within Last Year Have you traveled outside the [place] in the last year?: No - Additonal Travel Details Have you been exposed to anyone with a communicable illness?: No - Travel Symptoms Symptom Screening: None Review of Systems Reviewed: No additional complaints except as noted below Constitutional: Reports: As per HPI. Denies: Chills, Fever, Malaise, Night sweats, Weakness, Weight change Eyes: Reports: As per HPI. Denies: Eye discharge, Eye pain, Photophobia, Vision change ENT: Reports: As per HPI. Denies: Congestion, Dental pain, Ear pain, Epistaxis , Hearing loss, Throat pain Respiratory: Reports: As per HPI. Denies: Cough, Dyspnea, Hemoptysis, Stridor, Wheezes Cardiovascular: Reports: As per HPI. Denies: Arrhythmia, Chest pain, Dyspnea on exertion, Edema, Murmurs, Orthopnea, Palpitations, Paroxysmal nocturnal dyspnea, Rheumatic Fever, Syncope Endocrine: Reports: As per HPI. Denies: Fatigue, Heat or cold intolerance, Polydipsia, Polyuria Gastrointestinal: Reports: As per HPI. Denies: Abdominal pain, Constipation, Diarrhea, Hematemesis, Hematochezia, Melena, Nausea, Vomiting Genitourinary: Reports: As per HPI. Denies: Dysuria, Frequency, Hematuria, Incontinence, Retention, Testicular pain, Testicular mass, Urgency Musculoskeletal: Reports: As per HPI. Denies: Arthralgia, Back pain, Gout, Joint swelling, Myalgia, Neck pain Skin: Reports: As per HPI. Denies: Bruising, Change in color, Change in hair/ nails, Lesions, Pruritus, Rash Neurological: Reports: As per HPI. Denies: Abnormal gait, Confusion, Headache, Numbness, Paresthesias, Seizure, Tingling, Tremors, Vertigo, Weakness Psychiatric: Reports: As per HPI. Denies: Anxiety, Auditory hallucinations, Depression, Homicidal thoughts, Suicidal thoughts, Visual hallucinations Hematological/Lymphatic: Reports: As per HPI. Denies: Anemia, Blood Clots, Easy bleeding, Easy bruising, Swollen glands Past Medical History - SOCIAL HISTORY Smoking Status: Former smoker Alcohol Use: None Drug Use: None - RESPIRATORY Hx Respiratory Disorders: Yes Hx Asthma: No Hx Bronchitis: No Hx COPD: No Hx Dyspnea: No Hx Pneumonia: Yes Hx Pulmonary Embolism: No Hx Sleep Apnea: No Hx of CPAP: No - CARDIOVASCULAR Hx Cardio Disorders: Yes Hx Abnormal EKG: No Hx Cardiac Cath: No Hx Chest Pain: No Hx CHF: No Hx Deep Vein Thrombosis: No Hx Edema: No Hx Heart Attack: No Hx Hypertension: Yes Hx Hypotension: No Hx Irregular Heartbeat: No Hx Palpitations: No Hx Pacemaker/Defib: No Hx Vascular Disease: No - NEURO Hx Neuro Disorders: Yes Hx Brain Tumor: No Hx CVA: Yes Hx Dementia: No Hx Dizziness: No Hx Headaches: No Hx Neuropathy: No Hx Parkinson's Disease: No Hx Seizures: No Hx Speech Problem: No 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, 2002, 2007) - GI Hx GI Disorders: Yes Hx Abdominal Pain: No Hx Celiac Disease: No Hx Crohn's Disease: No Hx Diverticulitis: Yes Hx GI Bleed: No Hx Reflux: No Hx Hepatitis/Jaundice: No Hx Hiatal Hernia: Yes Hx Irritable Bowel: No Hx Liver Disease: No Hx Nausea/Vomiting: No Hx Obstructive Bowel: No Hx Pancreatitis: No Hx Rectal Bleeding: No Hx Ulcer: No Hx Wt Loss/Wt Gain: No Hx of Polyps: No - Hx Genitourinary Disorders: Yes Hx Bladder Problem: Yes Hx Dialysis: No Hx Kidney Stones: Yes Hx Prostate Problems: Yes (BPH) Hx Renal Disease: Yes (Poor RF 12/2015, but better now (dehydration)) Hx UTI: No Comment:: scheduled on 09/21/2016 for a arm fistula - ENDOCRINE Hx Endocrine Disorders: Yes Hx Diabetes: Yes Hx Thyroid Disease: No - MUSCULOSKELETAL Hx Musculoskeletal Disorders: No - PSYCH Hx Psych Problems: No - HEMATOLOGY/ONCOLOGY Hx Hematology/Oncology Disorders: No Family Medical History Any Significant Family History?: Yes Hx Diabetes: Mother, Grandparents Hx Stroke: Mother Physical Exam - General General Appearance: Alert, Oriented x3, Cooperative, Mild distress - Head Head exam: Normal inspection - Eye Eye exam: Normal appearance, PERRL, EOMI Pupils: Normal accommodation - ENT ENT exam: Normal exam, Mucous membranes moist, Normal external ear exam, Normal orophraynx Ear exam: Normal external inspection. negative: External canal tenderness Nasal Exam: Normal inspection. negative: Discharge, Sinus tenderness Mouth exam: Normal external inspection, Tongue normal Teeth exam: Normal inspection. negative: Dental caries Throat exam: Normal inspection. negative: Tonsillar erythema, Tonsillar exudate - Neck Neck exam: Normal inspection, Full ROM. negative: Tenderness - Respiratory Respiratory exam: Respiratory distress, Wheezes - Cardiovascular Cardiovascular Exam: Regular rate, Normal rhythm, Normal heart sounds - GI/Abdominal GI/Abdominal exam: Soft, Normal bowel sounds. negative: Tenderness - Rectal Rectal exam: Deferred - exam: Deferred - Extremities Extremities exam: Normal inspection, Full ROM, Normal capillary refill. negative: Tenderness - Back Back exam: Reports: Normal inspection, Full ROM. Denies: Muscle spasm, Rash noted, Tenderness - Neurological Neurological exam: Alert, CN II-XII intact, Normal gait, Oriented X3 - Psychiatric Psychiatric exam: Normal affect, Normal mood - Skin Skin exam: Dry, Intact, Normal color, Warm Course Vital Signs 09/03/16 09/03/16 09/03/16 16:53 17:19 18:14 Temperature 97.6 F Pulse Rate 97 H 86 Pulse Rate [ 102 H Pulse Ox Probe] Respiratory 20 18 20 Rate Blood Pressure 133/79 Pulse Ox 94 L 97 95 - Reevaluation(s) Reevaluation #1: 09/03/16 19:00 d/w dr magallanes who wants pt sent home on tamiflu Reevaluation #2: 09/03/16 19:10 pt is being put on reduced tamiflu because of renal fxn Medical Decision Making - Lab Data Result diagrams: 09/03/16 17:50 09/03/16 17:50 Lab Results 09/03/16 Range/Units 17:50 WBC 3.8 L (4.2-12.2) K/uL RBC 3.41 L (4.40-5.70) M/uL Hgb 9.8 L (14.0-18.0) gm/dl Hct 30.5 L (42.0-52.0) % MCV 89.4 (81-97) fl MCH 28.7 (27-33) pg MCHC 32.1 (32-36) g/dl RDW 13.6 (11.5-14.5) % Plt Count 125 L (130-400) K/uL MPV 10.2 (7.4-10.4) fl Eosinophils % Not Reportable Basophils % Not Reportable Disposition Disposition: Discharge Clinical Impression: Viral upper respiratory illness Disposition: Home, Self-Care Condition: (1) Good Instructions: Viral Syndrome (ED), Upper Respiratory Infection, Manager Export (GEN) Additional Instructions: recheck by dr magallanes on monday. return sooner if worse. Prescriptions: Oseltamivir Phosphate [Tamiflu] 75 mg PO DAILY #4 capsule Forms: Patient Portal Access
[2016-09-03] MEDS ORDERED: ACETAMINOPHEN 325 MG TAB PO ONE (18:59)
[2016-09-03] MEDS ORDERED: OSTELTAMIVIR 75 MG CAP PO ONE ×2 (18:59→19:08)
[2016-09-03 19:10] LABS: URINE APPEARANCE CLEAR; URINE BILIRUBIN NEGATIVE (NEGATIVE); URINE BLOOD NEGATIVE (NEGATIVE); URINE COLOR YELLOW; URINE GLUCOSE (UA) NEGATIVE (NEGATIVE); URINE KETONE NEGATIVE (NEGATIVE); URINE LEUKOCYTE ESTERASE NEGATIVE (NEGATIVE); URINE NITRITE NEGATIVE (NEGATIVE); URINE UROBILINOGEN 0.2 E.U./dL (0.20 - 1.00)
== END 2016-09-03 20:26 | disposition home or self-care (01) ==
LOC: ER 16:32
DX: J06.9 Acute upper respiratory infection, unspecified (principal); R06.02 Shortness of breath; R05 Cough; I10 Essential (primary) hypertension; Z87.891 Personal history of nicotine dependence
CPT/HCPCS: 71020; 80048; 81003; 83880; 84484; 85027; 93005; 93010; 94640; 96374; 99284; J2930

== ENCOUNTER 2016-09-30 07:12 | Emergency (ER) | payer MEDICARE, OTHER ==
--- NOTE | 2016-09-30 07:41 | Emergency Department Record ---
History of Present Illness - General Chief complaint: Male Urogenital Problem Stated complaint: UNABLE TO URINATE Time Seen by Provider: 09/30/16 07:35 Source: Patient Mode of Arrival: Ambulatory Limitations: No limitations - History of Present Illness Initial comments: 66 yo male presents to ED with a CC of burning with urination and urinary retention symptoms. Patient reports that he was recently hospitalized to have a LUE fistula placed, experienced urinary retention following his surgery requiring catheter for drainage. Patient saw Dr. Encarnacion Monday in the office following discharge, had his catheter removed and had been urinating well for several days untild his symptoms gradually began yesterday. Patient denies fevers, chills, or recent illness symptoms. Onset/Timin -: Days(s) Location: Abdomen Radiation: None Severity: Moderate Quality: Aching Consistency: Constant Improves with: None Worsens with: None Recent surgery Reports: Dysuria - Related Data Home Medications Medication Instructions Recorded Confirmed Last Taken Aspirin [Ecotrin] 325 mg PO DAILY 11/27/14 09/30/16 1 Day Ago Guar Gum [Fiber] 2 gm PO DAILY 11/27/14 09/30/16 1 Day Ago Multivitamin [Multi-Vitamin Daily] 1 each PO DAILY 11/27/14 09/30/16 1 Day Ago Vitamin E (Dl,Tocopheryl Acet) 1,000 unit PO DAILY 11/27/14 09/30/16 1 Day Ago [Vitamin E] Cholecalciferol (Vitamin D3) 50,000 unit PO Q4WEEK cap 10/12/15 09/30/16 1 Day Ago [Vitamin D3] Finasteride 5 mg PO QD tab 08/02/16 09/30/16 1 Day Ago Hydrocodone/Acetaminophen 1 tab PO ASDIR 09/30/16 09/30/16 09/30/16 [Hydrocodon-Acetaminophen 5-325] Allergies Allergy/AdvReac Type Severity Reaction Status Date / Time amoxicillin [AMOXICILLIN] Allergy Severe NAUSEA AND Verified 09/30/16 07:28 VOMITING Travel Screening - Travel/Exposure Within Last 30 Days Have you traveled within the last 30 days?: No Review of Systems Constitutional: Denies: Chills, Fever, Malaise, Night sweats Eyes: Denies: Eye discharge, Eye pain ENT: Denies: Congestion, Ear pain, Epistaxis Respiratory: Denies: Cough, Dyspnea Cardiovascular: Denies: Chest pain, Dyspnea on exertion Endocrine: Denies: Fatigue, Heat or cold intolerance Gastrointestinal: Reports: Abdominal pain. Denies: Constipation, Nausea, Vomiting Genitourinary: Reports: Retention. Denies: Incontinence, Testicular pain, Testicular mass Musculoskeletal: Denies: Arthralgia, Back pain Skin: Denies: Bruising, Change in color, Change in hair/nails, Pruritus Neurological: Denies: Abnormal gait, Confusion, Headache, Seizure Psychiatric: Denies: Anxiety Hematological/Lymphatic: Denies: Anemia, Blood Clots Past Medical History - SOCIAL HISTORY Smoking Status: Former smoker Alcohol Use: None Drug Use: None - RESPIRATORY Hx Respiratory Disorders: Yes Hx Asthma: No Hx Bronchitis: No Hx COPD: No Hx Dyspnea: No Hx Pneumonia: Yes Hx Pulmonary Embolism: No Hx Sleep Apnea: No Hx of CPAP: No - CARDIOVASCULAR Hx Cardio Disorders: Yes Hx Abnormal EKG: No Hx Cardiac Cath: No Hx Chest Pain: No Hx CHF: No Hx Deep Vein Thrombosis: No Hx Edema: No Hx Heart Attack: No Hx Hypertension: Yes Hx Hypotension: No Hx Irregular Heartbeat: No Hx Palpitations: No Hx Pacemaker/Defib: No Hx Vascular Disease: No - NEURO Hx Neuro Disorders: Yes Hx Brain Tumor: No Hx CVA: Yes Hx Dementia: No Hx Dizziness: No Hx Headaches: No Hx Neuropathy: No Hx Parkinson's Disease: No Hx Seizures: No Hx Speech Problem: No 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, 2002, 2007) - GI Hx GI Disorders: Yes Hx Abdominal Pain: No Hx Celiac Disease: No Hx Crohn's Disease: No Hx Diverticulitis: Yes Hx GI Bleed: No Hx Reflux: No Hx Hepatitis/Jaundice: No Hx Hiatal Hernia: Yes Hx Irritable Bowel: No Hx Liver Disease: No Hx Nausea/Vomiting: No Hx Obstructive Bowel: No Hx Pancreatitis: No Hx Rectal Bleeding: No Hx Ulcer: No Hx Wt Loss/Wt Gain: No Hx of Polyps: No - Hx Genitourinary Disorders: Yes Hx Bladder Problem: Yes Hx Dialysis: Yes (hasn't started yet) Hx Kidney Stones: Yes Hx Prostate Problems: Yes (BPH) Hx Renal Disease: Yes Hx UTI: No - ENDOCRINE Hx Endocrine Disorders: Yes Hx Diabetes: Yes Hx Thyroid Disease: No - MUSCULOSKELETAL Hx Musculoskeletal Disorders: No - PSYCH Hx Psych Problems: No - HEMATOLOGY/ONCOLOGY Hx Hematology/Oncology Disorders: No Family Medical History Any Significant Family History?: Yes Hx Diabetes: Mother, Grandparents Hx Stroke: Mother Physical Exam - General General Appearance: Alert, Oriented x3, Cooperative Limitations: No limitations - Head Head exam: Atraumatic, Normocephalic, Normal inspection Head exam detail: negative: Abrasion, Contusion, Mcfarland's sign, General tenderness, Hematoma, Laceration - Eye Eye exam: Normal appearance. negative: Conjunctival injection, Periorbital swelling, Periorbital tenderness, Scleral icterus - ENT Ear exam: negative: Auricular hematoma, Auricular trauma Nasal Exam: negative: Active bleeding, Discharge, Dried blood, Foreign body Mouth exam: negative: Drooling, Laceration, Muffled voice, Tongue elevation - Neck Neck exam: Normal inspection. negative: Meningismus, Tenderness - Respiratory Respiratory exam: Normal lung sounds bilaterally. negative: Rales, Respiratory distress, Rhonchi, Stridor - Cardiovascular Cardiovascular Exam: Regular rate, Normal rhythm, Normal heart sounds - GI/Abdominal GI/Abdominal exam: Soft, Tenderness. negative: Rebound, Rigid - Rectal Rectal exam: Deferred - exam: Deferred - Extremities Extremities exam: Normal inspection. negative: Calf tenderness, Pedal edema, Tenderness - Back Back exam: Denies: CVA tenderness (R), CVA tenderness (L) - Neurological Neurological exam: Alert, Normal gait, Oriented X3 - Psychiatric Psychiatric exam: Normal affect, Normal mood - Skin Skin exam: Normal color. negative: Abrasion Type of lesion: negative: abrasion Course Vital Signs 09/30/16 07:21 Temperature 97.6 F Pulse Rate 113 H Respiratory 20 Rate Blood Pressure 132/70 Pulse Ox 96 - Reevaluation(s) Reevaluation #1: 09/30/16 07:58 UA reviewed and appears negative for infection. Olivia catheter placed by nursing staff following bladder scan demonstrating 894 mL of retained urine following UA sample. Will have the patient follow-up with Dr. Encarnacion next week in the office (not in specialty clinic this upcoming week). Patient reports that he is feeling much better and appears stable for discharge at this time. Disposition Disposition: Discharge Clinical Impression: Retention of Urine Disposition: Home, Self-Care Condition: (2) Stable Instructions: Urinary Retention in Men (ED) Additional Instructions: Return to ED if your symptoms worsen or if you have any concerns. Leave catheter in place until you are able to follow-up with Dr. Encarnacion next week. Referrals: LIZ GÓMEZ M.D. [MEDICAL DOCTOR] - Forms: Patient Portal Access Time of Disposition: 08:02
[2016-09-30 07:42] LABS: URINE APPEARANCE CLEAR; URINE BILIRUBIN NEGATIVE (NEGATIVE); URINE BLOOD MODERATE (NEGATIVE); URINE COLOR YELLOW; URINE KETONE NEGATIVE (NEGATIVE); URINE LEUKOCYTE ESTERASE NEGATIVE (NEGATIVE); URINE NITRITE NEGATIVE (NEGATIVE); URINE UROBILINOGEN 0.2 E.U./dL (0.20 - 1.00)
[2016-09-30 07:51] LABS: URINE BACTERIA NONE SEEN; URINE EPITHELIAL CELLS NONE SEEN (FEW); URINE RBC 0 - 2 (NONE SEEN); URINE WBC NONE SEEN (0-2/hpf)
== END 2016-09-30 08:30 | disposition home or self-care (01) ==
LOC: ER 07:12
DX: R33.9 Retention of urine, unspecified (principal); R30.0 Dysuria
CPT/HCPCS: 81001; 99283

== ENCOUNTER 2018-04-01 20:26 | Emergency (ER) | payer MEDICARE, OTHER ==
--- NOTE | 2018-04-01 20:53 | Emergency Department Record ---
History of Present Illness - General Chief Complaint: Ankle/Foot Injury Stated Complaint: ANKLE INJURY Time Seen by Provider: 04/01/18 20:52 Source: Patient Mode of Arrival: Ambulatory Limitations: No limitations - History of Present Illness Initial Comments: The patient is here due to R ankle pain. He has had R ankle pain for at least a week. The patient denies any specific injury or trauma but states the pain has waxed and waned for a week and now has progressively gotten worse. Now he states he is unable to walk on the ankle due to pain. He has no hx of similar issues and no hx of gout. The patient is a Dialysis patient and is on a TTS schedule and did have a full run yesterday. Complaint: Other Onset/Timin -: Days(s) Place: Home Severity scale (1-10): 6 Improves With: Nothing Worsens With: Palpation, Weight bearing Associated Symptoms: Able to partially bear weight Treatments Prior to Arrival: Bandage, Other - Related Data Previous Rx's Medication Instructions Recorded Hydrocodone/Acetaminophen [[place] 1 each PO QID #12 tablet 04/01/18 5-325 Tablet] Prednisone [Prednisone 10Mg] 10 mg PO DAILY #5 tab 04/01/18 Allergies Allergy/AdvReac Type Severity Reaction Status Date / Time amoxicillin [AMOXICILLIN] Allergy Severe NAUSEA AND Verified 04/01/18 20:42 VOMITING Travel Screening - Travel/Exposure Within Last 30 Days Have you traveled within the last 30 days?: No - Travel/Exposure Within Last Year Have you traveled outside the [place] in the last year?: No - Additonal Travel Details Have you been exposed to anyone with a communicable illness?: No - Travel Symptoms Symptom Screening: None Review of Systems Constitutional: Denies: Chills, Fever Eyes: Denies: Eye discharge ENT: Denies: Congestion Respiratory: Denies: Cough, Dyspnea Past Medical History - SOCIAL HISTORY Smoking Status: Former smoker Alcohol Use: Rare Drug Use: Rare Drug Use Detail:: Marijuana - RESPIRATORY Hx Respiratory Disorders: Yes Hx Asthma: No Hx Bronchitis: No Hx COPD: No Hx Dyspnea: No Hx Pneumonia: Yes Hx Pulmonary Embolism: No Hx Sleep Apnea: No Hx of CPAP: No - CARDIOVASCULAR Hx Cardio Disorders: Yes Hx Abnormal EKG: No Hx Cardiac Cath: No Hx Chest Pain: No Hx CHF: No Hx Deep Vein Thrombosis: No Hx Edema: No Hx Heart Attack: No Hx Hypertension: Yes Hx Hypotension: No Hx Irregular Heartbeat: No Hx Palpitations: No Hx Pacemaker/Defib: No Hx Vascular Disease: No - NEURO Hx Neuro Disorders: Yes Hx Brain Tumor: No Hx CVA: Yes Hx Dementia: No Hx Dizziness: No Hx Headaches: No Hx Neuropathy: No Hx Parkinson's Disease: No Hx Seizures: No Hx Speech Problem: No 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, 2002, 2007) - GI Hx GI Disorders: Yes Hx Abdominal Pain: No Hx Celiac Disease: No Hx Crohn's Disease: No Hx Diverticulitis: Yes Hx GI Bleed: No Hx Reflux: No Hx Hepatitis/Jaundice: No Hx Hiatal Hernia: Yes Hx Irritable Bowel: No Hx Liver Disease: No Hx Nausea/Vomiting: No Hx Obstructive Bowel: No Hx Pancreatitis: No Hx Rectal Bleeding: No Hx Ulcer: No Hx Wt Loss/Wt Gain: No Hx of Polyps: No - Hx Genitourinary Disorders: Yes Hx Bladder Problem: Yes Hx Dialysis: Yes (hasn't started yet) Hx Kidney Stones: Yes Hx Prostate Problems: Yes (BPH) Hx Renal Disease: Yes Hx UTI: No - ENDOCRINE Hx Endocrine Disorders: Yes Hx Diabetes: Yes Hx Thyroid Disease: No - MUSCULOSKELETAL Hx Musculoskeletal Disorders: No - PSYCH Hx Psych Problems: No - HEMATOLOGY/ONCOLOGY Hx Hematology/Oncology Disorders: No Family Medical History Any Significant Family History?: No Hx Diabetes: Mother, Grandparents Hx Stroke: Mother Physical Exam - General General Appearance: Alert, Oriented x3, Cooperative, No acute distress - Head Head exam: Atraumatic, Normocephalic, Normal inspection - Eye Eye exam: Normal appearance, PERRL, EOMI - Extremities Extremities exam: Tenderness (There is tenderness to palpation to the lateral and anterior ankle.), Other (The RLE is NVI with normal pulses bilaterally and equal.). negative: Normal inspection (There is mild swelling to the Lateral R ankle joint area but no erythema, warmth or bruising. ), Full ROM (There is decreased full ROM due to pain. ) Image of Feet: 1 - Area of pain and tenderness. Course Vital Signs 10/14/18 20:36 Temperature 98.1 F Pulse Rate [ 82 Pulse Ox Probe] Respiratory 24 Rate Blood Pressure 142/83 [Left Arm] Pulse Ox 100 - Reevaluation(s) Reevaluation #1: I did discuss the case with Dr. Griffiths (Nephrology) who is precision lens polisher for the patient's Regular [employer] Dr. Diaz. He does agree that is most likely is not Gout but could be Pseudogout and would like the patient to be on a low dose of Prednisone for 5 days. We will discharge the patient with a Splint and F/U later this week. 04/01/18 22:03 Medical Decision Making - Data Complexity MDM Data: Labs Ordered and/or Reviewed - Lab Data Result diagrams: 04/01/18 21:19 04/01/18 21:19 Disposition Disposition: Discharge Clinical Impression: Arthralgia of ankle, right Disposition: Home, Self-Care Condition: (2) Stable Instructions: Arthralgia (ED) Additional Instructions: Please use the Splint for 7 days and use your home walker for getting around the house. Ice and elevate the ankle for 3 days. Take the [place] and Prednisone for pain. Please see your [employer] on Monday in 2 days as planned. Return to the ER for any worsening symptoms. Prescriptions: Hydrocodone/Acetaminophen [[place] 5-325 Tablet] 1 each PO QID #12 tablet Prednisone [Prednisone 10Mg] 10 mg PO DAILY #5 tab Forms: Patient Portal Access Quality - Quality Measures Quality Measures: N/A - Blood Pressure Screening View Details: Yes Does Patient Have Any of the Following: Active Dx of HTN Blood Pressure Classification: Pre-Hypertensive BP Reading Systolic Measurement: 156 Diastolic Measurement: 86 Screening for High Blood Pressure: Patient Exclusion, Hx of HTN [G9744]
[2018-04-01] MEDS ORDERED: HYDROCODONE/APAP 5/325MG TABLET PO ONE (21:20)
[2018-04-01 21:24] LABS: BASO % 0.2 % (0-6); EOS % 0.4 % (0-6); GRAN % 67.3 % (47-80); LYMPH % 22.5 % (16-45); MEAN CELL VOLUME 96.4 fl (81-97); MEAN CORPUSCULAR HGB CONC 32.4 g/dl (32-36); MEAN PLATELET VOLUME 9.9 fl (7.4-10.4); MONO % 9.6 % (0-9); PLATELET COUNT 167 K/uL (130-400); RED BLOOD COUNT 3.84 M/uL (4.40-5.70); RED CELL DISTRIBUTION WIDTH 13.4 % (11.5-14.5); WHITE BLOOD COUNT W/O DIFF 5.1 K/uL (4.2-12.2)
[2018-04-01 21:25] LABS: MEAN CORPUSCULAR HEMOGLOBIN 31.2 pg (27-33)
[2018-04-01 21:38] LABS: CREATININE 5.9 mg/dL (0.7-1.2)
[2018-04-01] MEDS ORDERED: PREDNISONE 20 MG TAB PO ONE (22:05)
[2018-04-02] MEDS ORDERED: PREDNISONE 20 MG TAB PO SCH (08:00)
--- NOTE | 2018-04-03 07:17 | RADIOLOGY REPORT ---
EXAM: RIGHT ANKLE HISTORY: INJURY. TECHNIQUE: Three views of the right ankle were performed. FINDINGS: No evidence of fracture or dislocation. No lytic or blastic lesion. Mild soft tissue swelling. IMPRESSION: NEGATIVE FOR FRACTURE. MILD SOFT TISSUE SWELLING. JOB NUMBER: [id number] MTDD
== END 2018-04-01 22:24 | disposition home or self-care (01) ==
LOC: ER 20:26
DX: M25.571 Pain in right ankle and joints of right foot (principal); I10 Essential (primary) hypertension; E11.9 Type 2 diabetes mellitus without complications; Z87.891 Personal history of nicotine dependence; Z99.2 Dependence on renal dialysis
CPT/HCPCS: 29515; 99283 ×2; 84550; 85025; 80048; 73610; J7512

== ENCOUNTER 2018-06-16 18:00 | Emergency (ER) | payer MEDICARE, OTHER ==
[2018-06-16] MEDS ORDERED: ONDANSETRON HCL IV 4 MG/2 ML VIAL IVP ONE (18:16)
[2018-06-16] MEDS ORDERED: 0.9 % SODIUM CHLORIDE 1000ML 1,000 ML IV SCH (18:30)
[2018-06-16 18:42] LABS: BASO % 0.3 % (0-6); EOS % 0.3 % (0-6); GRAN % 66.6 % (47-80); HEMATOCRIT 38.5 % (42.0-52.0); HEMOGLOBIN 12.4 gm/dl (14.0-18.0); LYMPH % 19.6 % (16-45); MEAN CELL VOLUME 94.6 fl (81-97); MEAN CORPUSCULAR HGB CONC 32.2 g/dl (32-36); MEAN PLATELET VOLUME 10.1 fl (7.4-10.4); MONO % 13.2 % (0-9); PLATELET COUNT 144 K/uL (130-400); RED BLOOD COUNT 4.07 M/uL (4.40-5.70); RED CELL DISTRIBUTION WIDTH 14.1 % (11.5-14.5); WHITE BLOOD COUNT W/O DIFF 3.4 K/uL (4.2-12.2)
[2018-06-16] MEDS ORDERED: 0.9 % SODIUM CHLORIDE 1,000 ML BAG IV ONE (18:43)
[2018-06-16] MEDS ORDERED: HYOSCYAMINE SULFATE ODT 0.125 MG TAB.SUBL SL ONE ×2 (18:44→19:54)
--- NOTE | 2018-06-16 18:49 | Emergency Department Record ---
History of Present Illness - General Chief complaint: Nausea, Vomiting, Diarrhea Stated complaint: N/V/D Time Seen by Provider: 06/16/18 18:16 Source: Patient Mode of Arrival: Ambulatory Limitations: No limitations - History of Present Illness Initial comments: 67 yo male s/p dialysis earlier today presents to ED for evaluation of nausea, vomiting, and abdominal pain symptoms for the past 3 days. Patient denies fevers, chills, or productive cough symptoms, but does report loose stools and fatigue. Patient did undergo routing dialysis this morning, was told it would help his symptoms. Patient's PCP is Sue, Caddymaster is Dr. Jamison. MD complaint: Abdominal pain, Nausea, Vomiting Onset/Timin -: Days(s) Associated Abdominal Pain: Yes Location: Diffuse Radiation: None Severity: Moderate Quality: Aching Consistency: Constant Improves with: None Worsens with: None Associated Symptoms: Denies other symptoms - Related Data Previous Rx's Medication Instructions Recorded Hyoscyamine Sulfate [Levsin-Sl] 0.25 mg SL Q8H PRN #15 tab.subl 06/16/18 Ondansetron [Zofran Odt] 4 mg PO Q8H PRN #15 tab.rapdis 06/16/18 Allergies Allergy/AdvReac Type Severity Reaction Status Date / Time amoxicillin [AMOXICILLIN] Allergy Severe NAUSEA AND Verified 06/16/18 18:53 VOMITING Review of Systems Constitutional: Denies: Chills, Fever, Malaise, Night sweats Eyes: Denies: Eye discharge, Eye pain ENT: Denies: Congestion, Ear pain, Epistaxis Respiratory: Denies: Cough, Dyspnea Cardiovascular: Denies: Chest pain, Dyspnea on exertion Endocrine: Denies: Fatigue, Heat or cold intolerance Gastrointestinal: Reports: Abdominal pain, Nausea, Vomiting Genitourinary: Denies: Incontinence, Retention Musculoskeletal: Denies: Arthralgia, Back pain Skin: Denies: Bruising, Change in color Neurological: Denies: Abnormal gait, Confusion, Headache, Tingling, Tremors Psychiatric: Denies: Anxiety Hematological/Lymphatic: Denies: Anemia, Blood Clots Past Medical History - SOCIAL HISTORY Smoking Status: Former smoker Drug Use: Rare Drug Use Detail:: Marijuana - RESPIRATORY Hx Respiratory Disorders: Yes Hx Asthma: No Hx Bronchitis: No Hx COPD: No Hx Dyspnea: No Hx Pneumonia: Yes Hx Pulmonary Embolism: No Hx Sleep Apnea: No Hx of CPAP: No - CARDIOVASCULAR Hx Cardio Disorders: Yes Hx Abnormal EKG: No Hx Cardiac Cath: No Hx Chest Pain: No Hx CHF: No Hx Deep Vein Thrombosis: No Hx Edema: No Hx Heart Attack: No Hx Hypertension: Yes Hx Hypotension: No Hx Irregular Heartbeat: No Hx Palpitations: No Hx Pacemaker/Defib: No Hx Vascular Disease: No - NEURO Hx Neuro Disorders: Yes Hx Brain Tumor: No Hx CVA: Yes Hx Dementia: No Hx Dizziness: No Hx Headaches: No Hx Neuropathy: No Hx Parkinson's Disease: No Hx Seizures: No Hx Speech Problem: No 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, 2002, 2007) - GI Hx GI Disorders: Yes Hx Abdominal Pain: No Hx Celiac Disease: No Hx Crohn's Disease: No Hx Diverticulitis: Yes Hx GI Bleed: No Hx Reflux: No Hx Hepatitis/Jaundice: No Hx Hiatal Hernia: Yes Hx Irritable Bowel: No Hx Liver Disease: No Hx Nausea/Vomiting: No Hx Obstructive Bowel: No Hx Pancreatitis: No Hx Rectal Bleeding: No Hx Ulcer: No Hx Wt Loss/Wt Gain: No Hx of Polyps: No - Hx Genitourinary Disorders: Yes Hx Bladder Problem: Yes Hx Dialysis: Yes (hasn't started yet) Hx Kidney Stones: Yes Hx Prostate Problems: Yes (BPH) Hx Renal Disease: Yes Hx UTI: No - ENDOCRINE Hx Endocrine Disorders: Yes Hx Diabetes: Yes Hx Thyroid Disease: No - MUSCULOSKELETAL Hx Musculoskeletal Disorders: No - PSYCH Hx Psych Problems: No - HEMATOLOGY/ONCOLOGY Hx Hematology/Oncology Disorders: No Family Medical History Hx Diabetes: Mother, Grandparents Hx Stroke: Mother Physical Exam - General General Appearance: Alert, Oriented x3, Cooperative, Moderate distress Limitations: No limitations - Head Head exam: Atraumatic, Normocephalic, Normal inspection Head exam detail: negative: Abrasion, Contusion, Mcfarland's sign, General tenderness, Hematoma, Laceration - Eye Eye exam: Normal appearance. negative: Conjunctival injection, Periorbital swelling, Periorbital tenderness, Scleral icterus - ENT Ear exam: negative: Auricular hematoma, Auricular trauma Nasal Exam: negative: Active bleeding, Discharge, Dried blood, Foreign body Mouth exam: negative: Drooling, Laceration, Muffled voice, Tongue elevation - Neck Neck exam: Normal inspection. negative: Meningismus, Tenderness - Respiratory Respiratory exam: Normal lung sounds bilaterally. negative: Respiratory distress, Rhonchi, Stridor, Wheezes - Cardiovascular Cardiovascular Exam: Regular rate, Normal rhythm, Normal heart sounds - GI/Abdominal GI/Abdominal exam: Soft, Tenderness (Mild brooke-umbilical pain is present on palpation, hernia present that is reducible, no rebound/guarding or peritoneal signs are present on examination.). negative: Rebound, Rigid - Rectal Rectal exam: Deferred - exam: Deferred - Extremities Extremities exam: Normal inspection. negative: Pedal edema, Tenderness - Back Back exam: Denies: CVA tenderness (R), CVA tenderness (L) - Neurological Neurological exam: Alert, Normal gait, Oriented X3 - Psychiatric Psychiatric exam: Normal affect, Normal mood - Skin Skin exam: Normal color. negative: Abrasion Type of lesion: negative: abrasion Course - Reevaluation(s) Reevaluation #1: 06/16/18 19:13 Laboratory studies were reviewed: WBC 3.4 Creatinine 3.9-c/w CKD Labs are otherwise grossly unremarkable for an acute process. Patient is going to CT imaging at this time. Reevaluation #2: 06/16/18 19:37 CT Abdomen and Pelvis: Wall thickening of the bladder, consider cystitis Cysts kidneys bilaterally Abdominal wall hernia Patient does not make urine any longer-cystitis unlikely as a result. Patient was updated on all results, symptoms have improved overall. Patient appears stable for discharge in Levsin and Zofran as directed with close follow-up. Medical Decision Making - Lab Data Result diagrams: 06/16/18 18:37 06/16/18 18:37 Disposition Disposition: Discharge Clinical Impression: ESRD (end stage renal disease) Nausea & vomiting Qualifiers: Vomiting type: unspecified Vomiting Intractability: non-intractable Qualified Code(s): R11.2 - Nausea with vomiting, unspecified Disposition: Home, Self-Care Condition: (2) Stable Instructions: Acute Nausea and Vomiting (ED) Additional Instructions: Return to ED if your symptoms worsen or if you have any concerns. Levsin and Zofran as directed. Follow-up with your family doctor in 1-3 days as directed. Prescriptions: Hyoscyamine Sulfate [Levsin-Sl] 0.25 mg SL Q8H PRN #15 tab.subl PRN Reason: Abdominal Pain Ondansetron [Zofran Odt] 4 mg PO Q8H PRN #15 tab.rapdis PRN Reason: Nausea/Vomiting Forms: Patient Portal Access Time of Disposition: 19:40 Quality - Quality Measures Quality Measures: N/A - Blood Pressure Screening Does Patient Have Any of the Following: No Blood Pressure Classification: Pre-Hypertensive BP Reading Systolic Measurement: 126 Diastolic Measurement: 59 Screening for High Blood Pressure: < Pre-Hypertensive BP, F/U Documented > [ G8950] Pre-Hypertensive Follow-up Interventions: Referral to alternative/primary care provider.
[2018-06-16 18:50] LABS: MEAN CORPUSCULAR HEMOGLOBIN 30.4 pg (27-33)
[2018-06-16 18:58] LABS: BILIRUBIN,TOTAL 0.4 mg/dL (0.2-1.0); CREATININE 3.9 mg/dL (0.7-1.2)
[2018-06-16 19:04] LABS: ALB/GLOB RATIO 1.5 (1.1-1.8); ALBUMIN 4.2 g/dL (4.0-5.0)
[2018-06-16] MEDS ORDERED: ONDANSETRON 4 MG ODT TABLET SL ONE (19:54)
--- NOTE | 2018-06-17 21:57 | CT SCAN REPORT ---
EXAM: CT SCAN ABDOMEN/PELVIS WO CONTRAST HISTORY: ABDOMINAL PAIN. TECHNIQUE: Sequential axial images were obtained from the diaphragms through the ischiorectal fossa without intravenous contrast administration. FINDINGS: The visualized lung bases demonstrate minimal pleural thickening. The non-opacified liver, gallbladder, and pancreas appear normal. There is mild splenomegaly. The spleen measures 14.5 cm in AP dimension. There is nodularity of the left adrenal gland. There are bilateral hyperdense and simple-appearing cystic lesions in both kidneys. There is a stable complex cystic mass in the pancreatic head region. This measures 4.6 x 4.4 cm. The small bowel appears normal. There is laxity of the midline ventral wall. Post-op surgical change in the pelvis. There is wall thickening of the urinary bladder suspicious for cystitis. There is atherosclerotic change of the abdominal aorta. IMPRESSION: 1. ABNORMAL WALL THICKENING AND PERIVESICULAR INFLAMMATORY CHANGE. FINDINGS ARE SUSPICIOUS FOR CYSTITIS. 2. POST-OP SURGICAL CHANGE CONSISTENT WITH PREVIOUS BOWEL RESECTION. NO COMPLICATING PROCESS. 3. STABLE COMPLEX CYSTIC MASS IN THE PANCREATIC HEAD REGION. THIS MEASURES APPROXIMATELY 4.6 X 4.4 CM. STABLE BILATERAL HYPERDENSE AND LOW DENSITY RENAL CORTICAL CYSTIC LESIONS. JOB NUMBER: [id number] MTDD
== END 2018-06-16 19:52 | disposition home or self-care (01) ==
LOC: ER 18:00
DX: I12.0 Hypertensive chronic kidney disease with stage 5 chronic kidney disease or end stage renal disease (principal); E11.22 Type 2 diabetes mellitus with diabetic chronic kidney disease; N18.6 End stage renal disease; R10.33 Periumbilical pain; R11.2 Nausea with vomiting, unspecified; R19.7 Diarrhea, unspecified; Z99.2 Dependence on renal dialysis; Z87.891 Personal history of nicotine dependence
CPT/HCPCS: 99284 ×2; 96374; 83690; 85025; 80053; 74176; J1980; J2405; J7030

== ENCOUNTER 2018-09-01 14:40 | Emergency (ER) | payer MEDICARE, OTHER ==
[2018-09-01] MEDS ORDERED: ONDANSETRON HCL IV 4 MG/2 ML VIAL IVP ONE (15:14)
[2018-09-01 15:24] LABS: BASO % 0.3 % (0-6); EOS % 1.5 % (0-6); GRAN % 65.6 % (47-80); HEMATOCRIT 38.9 % (42.0-52.0); HEMOGLOBIN 12.4 gm/dl (14.0-18.0); LYMPH % 18.5 % (16-45); MEAN CELL VOLUME 97.5 fl (81-97); MEAN CORPUSCULAR HGB CONC 31.9 g/dl (32-36); MEAN PLATELET VOLUME 10.4 fl (7.4-10.4); MONO % 14.1 % (0-9); PLATELET COUNT 146 K/uL (130-400); RED BLOOD COUNT 3.99 M/uL (4.40-5.70); RED CELL DISTRIBUTION WIDTH 13.2 % (11.5-14.5); WHITE BLOOD COUNT W/O DIFF 3.4 K/uL (4.2-12.2)
[2018-09-01 15:35] LABS: BILIRUBIN,TOTAL 0.4 mg/dL (0.2-1.0); CREATININE 5.5 mg/dL (0.7-1.2)
[2018-09-01 15:45] LABS: TOTAL PROTEIN 6.5 g/dL (6.6-8.7)
[2018-09-01 15:46] LABS: ALB/GLOB RATIO 1.6 (1.1-1.8)
--- NOTE | 2018-09-01 16:24 | Emergency Department Record ---
History of Present Illness - General Chief complaint: Nausea, Vomiting, Diarrhea Stated complaint: N/V/D Time Seen by Provider: 09/01/18 15:04 Source: Patient Mode of Arrival: Wheelchair Limitations: No limitations - History of Present Illness Initial comments: pt has been having n/v/d for 2 days and feels weak. he missed dialysis this am. MD complaint: Diarrhea, Nausea, Vomiting Onset/Timin -: Days(s) Consistency: Intermittent Improves with: None Worsens with: None Context: Other Associated Symptoms: Loss of appetite, Nausea/vomiting - Related Data Previous Rx's Medication Instructions Recorded Hyoscyamine Sulfate [Levsin-Sl] 0.25 mg SL Q8H PRN #15 tab.subl 06/16/18 Ondansetron [Zofran Odt] 4 mg PO Q8H PRN #15 tab.rapdis 06/16/18 Ondansetron [Zofran Odt] 4 mg PO Q8H #7 tab.rapdis 09/01/18 Allergies Allergy/AdvReac Type Severity Reaction Status Date / Time amoxicillin [AMOXICILLIN] Allergy Severe NAUSEA AND Verified 09/01/18 14:45 VOMITING Travel Screening - Travel/Exposure Within Last 30 Days Have you traveled within the last 30 days?: Yes Location Detail:: [place] - Travel/Exposure Within Last Year Have you traveled outside the [place] in the last year?: No - Additonal Travel Details Have you been exposed to anyone with a communicable illness?: No - Travel Symptoms Symptom Screening: None Review of Systems Reviewed: No additional complaints except as noted below Constitutional: Reports: As per HPI. Denies: Chills, Fever, Malaise, Night sweats, Weakness, Weight change Eyes: Reports: As per HPI. Denies: Eye discharge, Eye pain, Photophobia, Vision change ENT: Reports: As per HPI. Denies: Congestion, Dental pain, Ear pain, Epistaxis , Hearing loss, Throat pain Respiratory: Reports: As per HPI. Denies: Cough, Dyspnea, Hemoptysis, Stridor, Wheezes Cardiovascular: Reports: As per HPI. Denies: Arrhythmia, Chest pain, Dyspnea on exertion, Edema, Murmurs, Orthopnea, Palpitations, Paroxysmal nocturnal dyspnea, Rheumatic Fever, Syncope Endocrine: Reports: As per HPI. Denies: Fatigue, Heat or cold intolerance, Polydipsia, Polyuria Gastrointestinal: Reports: As per HPI, Diarrhea, Nausea, Vomiting. Denies: Abdominal pain, Constipation, Hematemesis, Hematochezia, Melena Genitourinary: Reports: As per HPI. Denies: Dysuria, Frequency, Hematuria, Incontinence, Retention, Testicular pain, Testicular mass, Urgency Musculoskeletal: Reports: As per HPI. Denies: Arthralgia, Back pain, Gout, Joint swelling, Myalgia, Neck pain Skin: Reports: As per HPI. Denies: Bruising, Change in color, Change in hair/ nails, Lesions, Pruritus, Rash Neurological: Reports: As per HPI. Denies: Abnormal gait, Confusion, Headache, Numbness, Paresthesias, Seizure, Tingling, Tremors, Vertigo, Weakness Psychiatric: Reports: As per HPI. Denies: Anxiety, Auditory hallucinations, Depression, Homicidal thoughts, Suicidal thoughts, Visual hallucinations Hematological/Lymphatic: Reports: As per HPI. Denies: Anemia, Blood Clots, Easy bleeding, Easy bruising, Swollen glands Past Medical History - SOCIAL HISTORY Smoking Status: Former smoker Alcohol Use: Rare Drug Use: Occasional Drug Use Detail:: Marijuana - RESPIRATORY Hx Respiratory Disorders: Yes Hx Asthma: No Hx Bronchitis: No Hx COPD: No Hx Dyspnea: No Hx Pneumonia: Yes Hx Pulmonary Embolism: No Hx Sleep Apnea: No Hx of CPAP: No - CARDIOVASCULAR Hx Cardio Disorders: Yes Hx Abnormal EKG: No Hx Cardiac Cath: No Hx Chest Pain: No Hx CHF: No Hx Deep Vein Thrombosis: No Hx Edema: No Hx Heart Attack: No Hx Hypertension: Yes Hx Hypotension: No Hx Irregular Heartbeat: No Hx Palpitations: No Hx Pacemaker/Defib: No Hx Vascular Disease: No - NEURO Hx Neuro Disorders: Yes Hx Brain Tumor: No Hx CVA: Yes Hx Dementia: No Hx Dizziness: No Hx Headaches: No Hx Neuropathy: No Hx Parkinson's Disease: No Hx Seizures: No Hx Speech Problem: No 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, 2002, 2007) - GI Hx GI Disorders: Yes Hx Abdominal Pain: No Hx Celiac Disease: No Hx Crohn's Disease: No Hx Diverticulitis: Yes Hx GI Bleed: No Hx Reflux: No Hx Hepatitis/Jaundice: No Hx Hiatal Hernia: Yes Hx Irritable Bowel: No Hx Liver Disease: No Hx Nausea/Vomiting: No Hx Obstructive Bowel: No Hx Pancreatitis: No Hx Rectal Bleeding: No Hx Ulcer: No Hx Wt Loss/Wt Gain: No Hx of Polyps: No - Hx Genitourinary Disorders: Yes Hx Bladder Problem: Yes Hx Dialysis: Yes (hasn't started yet) Hx Kidney Stones: Yes Hx Prostate Problems: Yes (BPH) Hx Renal Disease: Yes Hx UTI: No - ENDOCRINE Hx Endocrine Disorders: Yes Hx Diabetes: Yes Hx Thyroid Disease: No - MUSCULOSKELETAL Hx Musculoskeletal Disorders: No - PSYCH Hx Psych Problems: No - HEMATOLOGY/ONCOLOGY Hx Hematology/Oncology Disorders: No Family Medical History Any Significant Family History?: Yes Hx Diabetes: Mother, Grandparents Hx Stroke: Mother Physical Exam - General General Appearance: Alert, Oriented x3, Cooperative, Mild distress - Head Head exam: Normal inspection - Eye Eye exam: Normal appearance, PERRL, EOMI Pupils: Normal accommodation - ENT ENT exam: Normal exam, Mucous membranes moist, Normal external ear exam, Normal orophraynx Ear exam: Normal external inspection. negative: External canal tenderness Nasal Exam: Normal inspection. negative: Discharge, Sinus tenderness Mouth exam: Normal external inspection, Tongue normal Teeth exam: Normal inspection. negative: Dental caries Throat exam: Normal inspection. negative: Tonsillar erythema, Tonsillar exudate - Neck Neck exam: Normal inspection, Full ROM. negative: Tenderness - Respiratory Respiratory exam: Normal lung sounds bilaterally. negative: Respiratory distress - Cardiovascular Cardiovascular Exam: Regular rate, Normal rhythm, Normal heart sounds - GI/Abdominal GI/Abdominal exam: Soft, Normal bowel sounds. negative: Tenderness - Rectal Rectal exam: Deferred - exam: Deferred - Extremities Extremities exam: Normal inspection, Full ROM, Normal capillary refill. negative: Tenderness - Back Back exam: Reports: Normal inspection, Full ROM. Denies: Muscle spasm, Rash noted, Tenderness - Neurological Neurological exam: Alert, CN II-XII intact, Normal gait, Oriented X3 - Psychiatric Psychiatric exam: Normal affect, Normal mood - Skin Skin exam: Dry, Intact, Normal color, Warm Course Vital Signs 09/01/18 14:49 Temperature 98.1 F Pulse Rate 73 Respiratory 20 Rate Blood Pressure 146/66 Pulse Ox 98 - Reevaluation(s) Reevaluation #1: 09/01/18 16:23 pt feels better Reevaluation #2: 09/01/18 16:24 pt feels better Medical Decision Making - Lab Data Result diagrams: 09/01/18 15:05 09/01/18 15:05 Lab Results 09/01/18 09/01/18 Range/Units 15:05 15:05 WBC 3.4 L (4.2-12.2) K/uL RBC 3.99 L (4.40-5.70) M/uL Hgb 12.4 L (14.0-18.0) gm/dl Hct 38.9 L (42.0-52.0) % MCV 97.5 H (81-97) fl MCH 31.0 (27-33) pg MCHC 31.9 L (32-36) g/dl RDW 13.2 (11.5-14.5) % Plt Count 146 (130-400) K/uL MPV 10.4 (7.4-10.4) fl Gran % 65.6 (47-80) % Lymphocytes % 18.5 (16-45) % Monocytes % 14.1 H (0-9) % Eosinophils % 1.5 (0-6) % Basophils % 0.3 (0-6) % Sodium 140 (136-145) mmol/L Potassium 3.7 (3.4-4.5) mmol/L Chloride 98 (98-107) mmol/L Carbon Dioxide 28.0 (22-29) mmol/L Anion Gap 14.0 (7-16) BUN 22 (8-23) mg/dL Creatinine 5.5 H (0.7-1.2) mg/dL Estimated GFR 11 mL/min Random Glucose 116 H (74-109) mg/dL Calcium 9.1 (8.8-10.2) mg/dL Total Bilirubin 0.40 (0.2-1.0) mg/dL AST 26 (10.0-50.0) U/L ALT 13 (<41) U/L Alkaline Phosphatase 83 (40-129) U/L Total Protein 6.5 L (6.6-8.7) g/dL Albumin 4.0 (4.0-5.0) g/dL Globulin 2.5 (1.4-4.8) gm/dL Albumin/Globulin Ratio 1.6 (1.1-1.8) Disposition Disposition: Discharge Clinical Impression: Nausea & vomiting Qualifiers: Vomiting type: unspecified Vomiting Intractability: non-intractable Qualified Code(s): R11.2 - Nausea with vomiting, unspecified Diarrhea Qualifiers: Diarrhea type: unspecified type Qualified Code(s): R19.7 - Diarrhea, unspecified Disposition: Home, Self-Care Condition: (1) Good Instructions: Acute Nausea and Vomiting (ED), Acute Diarrhea (ED) Additional Instructions: follow up with family doctor and dialysis. return sooner if worse Prescriptions: Ondansetron [Zofran Odt] 4 mg PO Q8H #7 tab.rapdis Quality - Quality Measures Quality Measures: N/A - Blood Pressure Screening Does Patient Have Any of the Following: Active Dx of HTN Blood Pressure Classification: Hypertensive Reading Systolic Measurement: 146 Diastolic Measurement: 66 Screening for High Blood Pressure: Patient Exclusion, Hx of HTN [G9744]
== END 2018-09-01 16:41 | disposition home or self-care (01) ==
LOC: ER 14:40
DX: R11.2 Nausea with vomiting, unspecified (principal); R19.7 Diarrhea, unspecified; I10 Essential (primary) hypertension; E11.9 Type 2 diabetes mellitus without complications; F17.210 Nicotine dependence, cigarettes, uncomplicated
CPT/HCPCS: 99284 ×2; 96374; 85025; 80053; J2405

== ENCOUNTER 2018-10-08 06:51 | Day surgery (SDC) | payer MEDICARE, OTHER ==
[~2018-10-08 06:51] MED LIST: ACETAMINOPHEN 1,000 MG/100 ML BTL IV ONE; CLINDAMYCIN 600MG/50ML PREMIX 600 MG/50 ML BAG IVPB ONE; FAMOTIDINE 20MG TABLET PO ONE; MECLIZINE 25 MG TABLET PO ONE; METOCLOPRAMIDE 10 MG TABLET PO ONE
[2018-10-08] MEDS ORDERED: DEXAMETHASONE 4 MG/ML 1ML VIAL IVP ONE (06:52)
[2018-10-08] MEDS ORDERED: HYDROCODONE/APAP 5/325MG TABLET PO ONE ×2 (06:52→10:44)
[2018-10-08] MEDS ORDERED: LIDOCAINE 2% MDV (20MG/ML) 20ML VIAL IV ONE (06:52)
[2018-10-08] MEDS ORDERED: FENTANYL PF 100MCG/2ML VIAL IV ONE (06:52)
[2018-10-08] MEDS ORDERED: PROPOFOL 10 MG/ML VIAL IV ONE (06:52)
[2018-10-08] MEDS ORDERED: MIDAZOLAM HCL 2MG/2ML VIAL IV ONE (06:52)
[2018-10-08] MEDS ORDERED: SEVOFLURANE 250 ML INH ONE (06:52)
[2018-10-08] MEDS ORDERED: 0.9 % SODIUM CHLORIDE 1000ML 1,000 ML IV ONE ×2 (08:09→10:08)
[2018-10-08] MEDS ORDERED: BUPIVACAINE 0.25% W/EPI MPF 30ML VIAL SQ ONE (08:20)
[2018-10-08] MEDS ORDERED: RINGERS SOLUTION,LACTATED 1,000 ML IV ONE ×2 (10:08)
--- NOTE | 2018-10-09 09:40 | Operative Note ---
DATE OF SERVICE: 10/08/2018. DATE OF SURGERY: 10/08/2018. PREOPERATIVE DIAGNOSIS: Recurrent ventral hernia. POSTOPERATIVE DIAGNOSIS: Recurrent ventral hernia. OPERATION: Open ventral herniorrhaphy with mesh. It is a recurrent hernia. SURGEON: Brett Bella D.O. REFERRING PHYSICIAN: Shamar Rogers Jr., M.D. INDICATION: Patient is a 60-year-old male who underwent a Melanie procedure, subsequent colostomy reversal, midline ventral hernia with repair. He did suffer a recurrent infraumbilical midline ventral hernia. We discussed repair. Risks, benefits, and alternatives discussed. Risks of bleeding, infection, acute and chronic pain, recurrence, and he understood this fully. PROCEDURE: After appropriate consent was signed and questions answered, he was taken to the operating room and placed in the supine position. General anesthesia was administered per Department of Anesthesia. The patient's abdomen was prepped and draped in the usual fashion. The area around the hernia was anesthetized with a total of 10 mL of 0.25% Sensorcaine with epinephrine. A 4 cm incision made. This was carried down to the hernia sac. This was dissected free from the surrounding tissue. Clean circumferential fascial edges were obtained surrounding the hernia. Hernia sac was entered, containing only omentum. The hernia sac was then amputated. The hernia defect was about 2.5 cm. At this time, a 14 x [address] mesh was obtained. This was placed in the intraperitoneal position. The upper skirt was sutured to the anterior rectus fascia in 10 spots with 2-0 Vicryl. The subcutaneous tissue was then closed with 3-0 Vicryl. Skin was closed with a skin stapling device. We did also have to explant part of the prior mesh which was present. Patient tolerated procedure well. CC: Shamar Rogers Jr., MD MTDD
== END 2018-10-08 11:04 | disposition home or self-care (01) ==
LOC: SUR 06:51
PROVIDERS: ATTEND Surgery
DX: K43.2 Incisional hernia without obstruction or gangrene (principal); E11.9 Type 2 diabetes mellitus without complications; E78.00 Pure hypercholesterolemia, unspecified; N40.0 Benign prostatic hyperplasia without lower urinary tract symptoms; Z79.01 Long term (current) use of anticoagulants; N18.6 End stage renal disease; Z99.2 Dependence on renal dialysis; Z86.73 Personal history of transient ischemic attack (TIA), and cerebral infarction without residual deficits
CPT/HCPCS: 49565; 00752; 36416; 82948; J3010; J7030; J7120

== ENCOUNTER 2018-10-09 06:08 | Emergency (ER) | payer MEDICARE, OTHER ==
--- NOTE | 2018-10-09 06:43 | Emergency Department Record ---
History of Present Illness - General Chief Complaint: Wound, check Stated Complaint: BLEEDING FROM SUTURES Time Seen by Provider: 10/09/18 06:38 Source: Patient Mode of arrival: Ambulatory Limitations: No limitations - History of Present Illness Initial Comments: pt had hernia repair yesterday, he found the dressing to be blood soaked this am when he got up to go to dialysis. he denies doing anything to stress it Complaint: Wound re-check Onset/Timin -: Days(s) Initial Visit For: Other Returns Today for: Other Symptoms Since Prior Visit: Other - Related Data Allergies Allergy/AdvReac Type Severity Reaction Status Date / Time amoxicillin [AMOXICILLIN] Allergy Severe NAUSEA AND Verified 10/08/18 08:28 VOMITING Travel Screening - Travel/Exposure Within Last 30 Days Have you traveled within the last 30 days?: No Review of Systems Reviewed: No additional complaints except as noted below Constitutional: Reports: As per HPI. Denies: Chills, Fever, Malaise, Night sweats, Weakness, Weight change Eyes: Reports: As per HPI. Denies: Eye discharge, Eye pain, Photophobia, Vision change ENT: Reports: As per HPI. Denies: Congestion, Dental pain, Ear pain, Epistaxis , Hearing loss, Throat pain Respiratory: Reports: As per HPI. Denies: Cough, Dyspnea, Hemoptysis, Stridor, Wheezes Cardiovascular: Reports: As per HPI. Denies: Arrhythmia, Chest pain, Dyspnea on exertion, Edema, Murmurs, Orthopnea, Palpitations, Paroxysmal nocturnal dyspnea, Rheumatic Fever, Syncope Endocrine: Reports: As per HPI. Denies: Fatigue, Heat or cold intolerance, Polydipsia, Polyuria Gastrointestinal: Reports: As per HPI. Denies: Abdominal pain, Constipation, Diarrhea, Hematemesis, Hematochezia, Melena, Nausea, Vomiting Genitourinary: Reports: As per HPI. Denies: Dysuria, Frequency, Hematuria, Incontinence, Retention, Testicular pain, Testicular mass, Urgency Musculoskeletal: Reports: As per HPI. Denies: Arthralgia, Back pain, Gout, Joint swelling, Myalgia, Neck pain Skin: Reports: As per HPI. Denies: Bruising, Change in color, Change in hair/ nails, Lesions, Pruritus, Rash Neurological: Reports: As per HPI. Denies: Abnormal gait, Confusion, Headache, Numbness, Paresthesias, Seizure, Tingling, Tremors, Vertigo, Weakness Psychiatric: Reports: As per HPI. Denies: Anxiety, Auditory hallucinations, Depression, Homicidal thoughts, Suicidal thoughts, Visual hallucinations Hematological/Lymphatic: Reports: As per HPI. 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, 2002, 2007) - GI Hx GI Disorders: Yes Hx Reflux: No Hx Wt Loss/Wt Gain: No - Hx Genitourinary Disorders: Yes Hx Bladder Problem: Yes Hx Dialysis: Yes (hasn't started yet) Hx Renal Disease: Yes - ENDOCRINE Hx Endocrine Disorders: Yes Hx Diabetes: Yes - MUSCULOSKELETAL Hx Musculoskeletal Disorders: No 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) Hx Osteoporosis: Yes (3" loss ht) - PSYCH Hx Psych Problems: No - HEMATOLOGY/ONCOLOGY Hx Hematology/Oncology Disorders: No Hx Bruising: Yes (on plavix) Family Medical History Any Significant Family History?: Yes Hx Diabetes: Mother, Grandparents Hx Stroke: Mother Physical Exam - General General Appearance: Alert, Oriented x3, Cooperative, No acute distress - Head Head exam: Normal inspection - Eye Eye exam: Normal appearance, PERRL, EOMI Pupils: Normal accommodation - ENT ENT exam: Normal exam, Mucous membranes moist, Normal external ear exam, Normal orophraynx Ear exam: Normal external inspection. negative: External canal tenderness Nasal Exam: Normal inspection. negative: Discharge, Sinus tenderness Mouth exam: Normal external inspection, Tongue normal Teeth exam: Normal inspection. negative: Dental caries Throat exam: Normal inspection. negative: Tonsillar erythema, Tonsillar exudate - Neck Neck exam: Normal inspection, Full ROM. negative: Tenderness - Respiratory Respiratory exam: Normal lung sounds bilaterally. negative: Respiratory distress - Cardiovascular Cardiovascular Exam: Regular rate, Normal rhythm, Normal heart sounds - GI/Abdominal GI/Abdominal exam: Soft, Normal bowel sounds, Tenderness, Other (stapled incision midline umbilical that has no active bleeding [but did have a blood soaked dressing]) - Rectal Rectal exam: Deferred - exam: Deferred - Extremities Extremities exam: Normal inspection, Full ROM, Normal capillary refill. negative: Tenderness - Back Back exam: Reports: Normal inspection, Full ROM. Denies: Muscle spasm, Rash noted, Tenderness - Neurological Neurological exam: Alert, CN II-XII intact, Normal gait, Oriented X3 - Psychiatric Psychiatric exam: Normal affect, Normal mood - Skin Skin exam: Dry, Intact, Normal color, Warm Course Vital Signs 10/09/18 06:14 Temperature 97.6 F Pulse Rate [ 75 Left] Respiratory 16 Rate Blood Pressure 124/64 [Left Arm] Pulse Ox 96 - Reevaluation(s) Reevaluation #1: 10/09/18 06:44 d/w dr bingham. pt states hes going to skip dialysis today as he really doesnt need it Disposition Disposition: Discharge Clinical Impression: Post-op bleeding Qualifiers: Surgical complication system/body Area: skin Procedure type: non-dermatologic Qualified Code(s): L76.22 - Postprocedural hemorrhage of skin and subcutaneous tissue following other procedure Disposition: Home, Self-Care Condition: (1) Good Instructions: Postoperative Bleeding (ED) Additional Instructions: follow up with dr bingham. rest. ojhnnie lau Quality - Quality Measures Quality Measures: N/A - Blood Pressure Screening Does Patient Have Any of the Following: No Blood Pressure Classification: Pre-Hypertensive BP Reading Systolic Measurement: 124 Diastolic Measurement: 64 Screening for High Blood Pressure: < Pre-Hypertensive BP, F/U Documented > [ [id number]] Pre-Hypertensive Follow-up Interventions: Follow-up with rescreen every year.
== END 2018-10-09 06:58 | disposition home or self-care (01) ==
LOC: ER 06:08
DX: L76.22 Postprocedural hemorrhage of skin and subcutaneous tissue following other procedure (principal); Y83.8 Other surgical procedures as the cause of abnormal reaction of the patient, or of later complication, without mention of misadventure at the time of the procedure
CPT/HCPCS: 99282

== ENCOUNTER 2018-10-17 22:33 | Emergency (ER) | payer MEDICARE, OTHER ==
--- NOTE | 2018-10-17 22:41 | Emergency Department Record ---
History of Present Illness - General Chief Complaint: Recheck - Other Stated Complaint: ABDOMINAL SURGERY SITE LEAKAGE Time Seen by Provider: 10/17/18 22:36 Source: Patient, Family Mode of arrival: Ambulatory Limitations: No limitations - History of Present Illness Initial Comments: 68 yo male presents with concerns about his hernia surgery wound. The patient had an umbilical hernia repair on 10/08/[address] Bella. No fevers or chills. No redness. He stood up tonight and a clear to yellow fluid leaked out. No pus. No abdominal pain. No swelling. No other new concerns with healing. MD Complaint: Wound re-check -: Minutes(s) Returns Today for: Wound recheck Symptoms Since Prior Visit: Other (as above) Associated Symptoms: None - Related Data Allergies Allergy/AdvReac Type Severity Reaction Status Date / Time amoxicillin [AMOXICILLIN] Allergy Severe NAUSEA AND Verified 10/08/18 08:28 VOMITING Review of Systems Constitutional: Denies: Chills, Fever, Malaise, Weakness Eyes: Denies: Eye discharge ENT: Denies: Congestion, Throat pain Respiratory: Denies: Cough Cardiovascular: Denies: Chest pain, Palpitations, Syncope Endocrine: Denies: Fatigue Gastrointestinal: Denies: Abdominal pain, Diarrhea, Nausea, Vomiting Genitourinary: Denies: Dysuria, Frequency, Hematuria Musculoskeletal: Denies: Arthralgia, Back pain, Myalgia Skin: Denies: Bruising, Change in color, Rash Neurological: Denies: Confusion Psychiatric: Denies: Anxiety Hematological/Lymphatic: Denies: Easy bleeding, Easy bruising Past Medical History - SOCIAL HISTORY Smoking Status: Former smoker - RESPIRATORY Hx Respiratory Disorders: Yes Hx Pneumonia: Yes - CARDIOVASCULAR Hx Cardio Disorders: Yes Hx Cardiac Cath: No Hx Hypertension: Yes Hx Vascular Disease: No - NEURO Hx Neuro Disorders: Yes Hx CVA: Yes 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, 2002, 2007) - GI Hx GI Disorders: Yes Hx Reflux: No Hx Wt Loss/Wt Gain: No - Hx Genitourinary Disorders: Yes Hx Bladder Problem: Yes Hx Dialysis: Yes (hasn't started yet) Hx Renal Disease: Yes - ENDOCRINE Hx Endocrine Disorders: Yes Hx Diabetes: Yes - MUSCULOSKELETAL Hx Musculoskeletal Disorders: No 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 negative: Conjunctival injection, Scleral icterus - ENT ENT exam: Normal exam Ear exam: Normal external inspection Nasal Exam: Normal inspection Mouth exam: Normal external inspection - Neck Neck exam: Normal inspection - Respiratory Respiratory exam: Normal lung sounds bilaterally - Cardiovascular Cardiovascular Exam: Regular rate, Normal rhythm, Normal heart sounds, Other ( Fistula intact) - GI/Abdominal GI/Abdominal exam: Soft, Other (The surgical sight is clean with out redness or erythema, no pus. Very small amount of serosanguanous drainage. The staple line is healing well and is intact). negative: Distended, Guarding, Rebound, Rigid, Tenderness - Rectal Rectal exam: Deferred - exam: Deferred - Extremities Extremities exam: Normal inspection - Neurological Neurological exam: Alert, Oriented X3 - Psychiatric Psychiatric exam: Normal affect, Normal mood - Skin Skin exam: Dry, Intact, Normal color, Warm Course - Reevaluation(s) Reevaluation #1: 10/17/18 22:55 The wound is healing without signs of infection He has clear thin fluid on his gauze. I had him bear down. There were a few drops of clear-yellow likely from a seroma No signs of bleeding or infection Medical Decision Making - Lab Data Result diagrams: 10/17/18 22:40 10/17/18 22:40 Disposition Disposition: Discharge Clinical Impression: Seroma Disposition: Home, Self-Care Condition: (1) Good Instructions: Staple Care (ED) Additional Instructions: Return to the ER if you have fever, redness, or blood or any concerns with the healing of your surgery site Call Dr Bella if you have any new concerns with your healing Follow up on Monday as schedule with your surgeon Forms: Patient Portal Access Time of Disposition: 22:58 Quality - Quality Measures Quality Measures: N/A - Blood Pressure Screening Does Patient Have Any of the Following: Active Dx of HTN Blood Pressure Classification: Hypertensive Reading Systolic Measurement: 160 Diastolic Measurement: 75 Screening for High Blood Pressure: Patient Exclusion, Hx of HTN [G9744]
== END 2018-10-17 23:07 | disposition home or self-care (01) ==
LOC: ER 22:33
DX: K91.872 Postprocedural seroma of a digestive system organ or structure following a digestive system procedure (principal); E11.9 Type 2 diabetes mellitus without complications; I10 Essential (primary) hypertension; Y83.8 Other surgical procedures as the cause of abnormal reaction of the patient, or of later complication, without mention of misadventure at the time of the procedure; Z87.891 Personal history of nicotine dependence
CPT/HCPCS: 99283

== ENCOUNTER 2018-11-17 05:43 | Emergency (ER) | payer MEDICARE, OTHER ==
[2018-11-17] MEDS ORDERED: ALBUTEROL (0.5% CONCENTRATED) 2.5 MG/0.5 ML VIAL.NEB INH ONE ×2 (05:52→05:57)
[2018-11-17] MEDS ORDERED: IPRATROPIUM/ALBUTEROL (0.5MG/3MG) NEB INH ONE (05:57)
--- NOTE | 2018-11-17 05:59 | Emergency Department Record ---
History of Present Illness - General Chief Complaint: Shortness of breath Stated Complaint: ALEX Time Seen by Provider: 11/17/18 05:52 Source: Patient Mode of Arrival: EMS Limitations: No limitations - History of Present Illness Initial Comments: 68 yo male presents to ED for evaluation of ALEX this morning. Patient reports similar symptoms with previous episodes of pneumonia. Patient denies fevers/chills but does report that he feels weak all over. Patient denies chest pain or discomfort, denies lower extremity edema. Patient is a dialysis patient due later this morning to run. MD Complaint: Shortness of breath Onset/Timin -: Hour(s) Severity: Moderate Consistency: Constant Improves With: Nothing Worsens With: Exertion Associated Symptoms: Denies other symptoms Treatments Prior to Arrival: None - Related Data Home Oxygen Therapy: No Allergies Allergy/AdvReac Type Severity Reaction Status Date / Time amoxicillin [AMOXICILLIN] Allergy Severe NAUSEA AND Unverified 11/14/18 14:56 VOMITING Review of Systems Constitutional: Denies: Chills, Fever, Malaise, Night sweats Eyes: Denies: Eye discharge, Eye pain ENT: Denies: Congestion, Ear pain, Epistaxis Respiratory: Reports: Dyspnea. Denies: Cough Cardiovascular: Denies: Chest pain, Dyspnea on exertion, Edema, Palpitations Endocrine: Denies: Fatigue, Heat or cold intolerance Gastrointestinal: Denies: Abdominal pain, Nausea, Vomiting Genitourinary: Denies: Incontinence, Retention Musculoskeletal: Denies: Arthralgia, Back pain Skin: Denies: Bruising, Change in color Neurological: Denies: Abnormal gait, Confusion, Headache, Seizure Psychiatric: Denies: Anxiety Hematological/Lymphatic: Denies: Anemia, Blood Clots Past Medical History - SOCIAL HISTORY Smoking Status: Former smoker - RESPIRATORY Hx Respiratory Disorders: Yes Hx Pneumonia: Yes - CARDIOVASCULAR Hx Cardio Disorders: Yes Hx Cardiac Cath: No Hx Hypertension: Yes Hx Vascular Disease: No - NEURO Hx Neuro Disorders: Yes Hx CVA: Yes 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, 2002, 2007) - GI Hx GI Disorders: Yes Hx Reflux: No Hx Wt Loss/Wt Gain: No - Hx Genitourinary Disorders: Yes Hx Bladder Problem: Yes Hx Dialysis: Yes (hasn't started yet) Hx Renal Disease: Yes - ENDOCRINE Hx Endocrine Disorders: Yes Hx Diabetes: Yes - MUSCULOSKELETAL Hx Musculoskeletal Disorders: No 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 negative: Conjunctival injection, Periorbital swelling, Periorbital tenderness, Scleral icterus - ENT Ear exam: negative: Auricular hematoma, Auricular trauma Nasal Exam: negative: Active bleeding, Discharge, Dried blood, Foreign body Mouth exam: negative: Drooling, Laceration, Muffled voice, Tongue elevation - Neck Neck exam: Normal inspection. negative: Meningismus, Tenderness - Respiratory Respiratory exam: Rales, Wheezes. negative: Respiratory distress, Rhonchi, Stridor - Cardiovascular Cardiovascular Exam: Regular rate, Normal rhythm, Normal heart sounds - GI/Abdominal GI/Abdominal exam: Soft. negative: Rebound, Rigid, Tenderness - Rectal Rectal exam: Deferred - exam: Deferred - Extremities Extremities exam: Normal inspection. negative: Pedal edema, Tenderness - Back Back exam: Denies: CVA tenderness (R), CVA tenderness (L) - Neurological Neurological exam: Alert, Normal gait, Oriented X3 - Psychiatric Psychiatric exam: Normal affect, Normal mood - Skin Skin exam: Normal color. negative: Abrasion Type of lesion: negative: abrasion Course - Reevaluation(s) Reevaluation #1: 11/17/18 06:08 NSR 97 RBBB, LAD No acute ST-T wave changes are present Reevaluation #2: 11/17/18 06:30 Laboratory studies were reviewed and are grossly unremarkable for an acute process except for the following: Hgb 11.5 BUN 33/Creatinine 5.3 GFR 12 Troponin 0.225. CXR: Probable RML infiltrate Interstitial changes bilaterally Rocephin/Zithromax ordered to infuse. Reevaluation #3: 11/17/18 06:59 Case was discussed with Dr. Gonsalez, will accept patient at this time. Medical Decision Making - Lab Data Result diagrams: 11/17/18 06:00 11/17/18 06:00 Disposition Disposition: Transfer Clinical Impression: ESRD (end stage renal disease) on dialysis CAP (community acquired pneumonia) Qualifiers: Laterality: right Lung location: middle lobe of lung Qualified Code(s): J18.1 - Lobar pneumonia, unspecified organism Disposition: Acute Care Hospital Transfer Transfer To: [facility] Reason For Transfer: Dialysis Accepting Physician: Sunshine Time Discussed w/Accepting Physician: 06:32 Condition: (2) Stable Forms: Patient Portal Access Time of Disposition: 06:59 Quality - Quality Measures Quality Measures: N/A - Blood Pressure Screening Does Patient Have Any of the Following: Active Dx of HTN Blood Pressure Classification: Hypertensive Reading Systolic Measurement: 170 Diastolic Measurement: 76 Screening for High Blood Pressure: Patient Exclusion, Hx of HTN [G9744]
[2018-11-17 06:07] LABS: ABSOLUTE NEUTROPHIL COUNT 2.86; BASO % 0.2 % (0-6); EOS % 1.1 % (0-6); GRAN % 64.4 % (47-80); HEMATOCRIT 36.3 % (42.0-52.0); HEMOGLOBIN 11.5 gm/dl (14.0-18.0); LYMPH % 25.8 % (16-45); MEAN CELL VOLUME 99.5 fl (81-97); MEAN CORPUSCULAR HEMOGLOBIN 31.5 pg (27-33); MEAN CORPUSCULAR HGB CONC 31.7 g/dl (32-36); MEAN PLATELET VOLUME 10.4 fl (7.4-10.4); MONO % 8.5 % (0-9); PLATELET COUNT 112 K/uL (130-400); RED BLOOD COUNT 3.65 M/uL (4.40-5.70); RED CELL DISTRIBUTION WIDTH 13.9 % (11.5-14.5); WHITE BLOOD COUNT W/O DIFF 4.5 K/uL (4.2-12.2)
[2018-11-17 06:19] LABS: BILIRUBIN,TOTAL 0.3 mg/dL (0.2-1.0); CREATININE 5.3 mg/dL (0.7-1.2)
[2018-11-17 06:20] LABS: TOTAL PROTEIN 6.4 g/dL (6.6-8.7)
[2018-11-17 06:24] LABS: ALBUMIN 4.3 g/dL (4.0-5.0)
[2018-11-17] MEDS ORDERED: CEFTRIAXONE 1GM/50ML BAG 1 GM/50 ML BAG IVPB ONE (06:31)
--- NOTE | 2018-11-18 21:08 | RADIOLOGY REPORT ---
EXAM: CHEST 2 VIEWS HISTORY: SHORTNESS OF BREATH FOR ONE DAY. TECHNIQUE: Two views of the chest. COMPARISON: Chest radiograph 09/03/2016. FINDINGS: Cardiac silhouette within normal size limits. Thoracic aortic calcifications are noted. Predominately interstitial coarse opacities in the mid lungs and lung bases bilaterally, appearing more pronounced from 2017 comparison. Lungs are hyperinflated. No significant pleural fluid collection or visible pneumothorax. IMPRESSION: 1. COARSE BILATERAL INTERSTITIAL PULMONARY OPACITIES, INCREASED FROM 2017 RADIOGRAPH COMPARISON. DIFFERENTIAL INCLUDES PROGRESSION OF CHRONIC INTERSTITIAL/FIBROTIC LUNG DISEASE OR ACUTE PROCESSES, SUCH INTERSTITIAL EDEMA OR ATYPICAL PNEUMONIA. 2. PULMONARY HYPERINFLATION, COMPATIBLE WITH COPD. JOB NUMBER: [id number] MTDD
== END 2018-11-17 08:56 | disposition short-term general hospital (02) ==
LOC: ER 05:43
DX: J18.1 Lobar pneumonia, unspecified organism (principal); E11.22 Type 2 diabetes mellitus with diabetic chronic kidney disease; I12.0 Hypertensive chronic kidney disease with stage 5 chronic kidney disease or end stage renal disease; N18.6 End stage renal disease; Z99.2 Dependence on renal dialysis; Z87.891 Personal history of nicotine dependence
CPT/HCPCS: 99285 ×2; 96365; 96366; 85025; 80053; 84484; 71046; 94640; 93005; 93010; J0696

== ENCOUNTER 2019-03-05 06:26 | Emergency (ER) | payer MEDICARE, OTHER ==
--- NOTE | 2019-03-05 06:51 | Emergency Department Record ---
History of Present Illness - General Chief complaint: Male Urogenital Problem Stated complaint: UNABLE TO URINATE Time Seen by Provider: 03/05/19 06:48 Source: Patient Mode of Arrival: Ambulatory Limitations: No limitations - History of Present Illness Initial comments: 68 yo male presents to ED for evaluation of urinary retention symptoms that began last night. Patient reports that he self-cathed himself early this morning resulting in bloody urine. Patient reports similar symptoms 5 days ago, was seen at Urgent Care and diagnosed with a UTI. Patient reports that he was started Cipro 5 days ago, but was called by the Urgent Care to stop his Cipro as his urine was not infected. Patient has not gone to dialysis Monday or this morning as he "couldn't sit through his session" due to urinary symptoms. Patient normally receives dialysis in [place], reports that his [facility] blood bank is in [place]. Complaint: Other Onset/Timin -: Days(s) Location: Abdomen Radiation: None Severity: Moderate Quality: Other (cramping) Consistency: Constant Improves with: Other (Self-catheterization) Worsens with: None Reports: Denies other symptoms - Related Data Sexually active: No Home Medications Medication Instructions Recorded Confirmed Last Taken Ferrous Fum/Folic Acid/Bcomp,C 1 each PO DAILY 03/05/19 03/05/19 Unknown [Dialyvite 800 with Iron Tab] Allergies Allergy/AdvReac Type Severity Reaction Status Date / Time amoxicillin [AMOXICILLIN] Allergy Severe NAUSEA AND Unverified 03/01/19 10:41 VOMITING Travel Screening - Travel/Exposure Within Last 30 Days Have you traveled within the last 30 days?: No - Travel/Exposure Within Last Year Have you traveled outside the [place] in the last year?: No - Additonal Travel Details Have you been exposed to anyone with a communicable illness?: No - Travel Symptoms Symptom Screening: None Review of Systems Constitutional: Denies: Chills, Fever, Malaise, Night sweats Eyes: Denies: Eye discharge, Eye pain ENT: Denies: Congestion, Ear pain, Epistaxis Respiratory: Denies: Cough, Dyspnea Cardiovascular: Denies: Chest pain, Dyspnea on exertion Endocrine: Denies: Fatigue, Heat or cold intolerance Gastrointestinal: Reports: Abdominal pain. Denies: Nausea, Vomiting Genitourinary: Denies: Incontinence, Retention Musculoskeletal: Denies: Arthralgia, Back pain Skin: Denies: Bruising, Change in color Neurological: Denies: Abnormal gait, Confusion, Headache, Tingling, Tremors Psychiatric: Denies: Anxiety Hematological/Lymphatic: Denies: Anemia, Blood Clots Past Medical History - SOCIAL HISTORY Smoking Status: Former smoker Alcohol Use: Occasional Drug Use: Occasional Drug Use Detail:: Marijuana - RESPIRATORY Hx Respiratory Disorders: Yes Hx Pneumonia: Yes - CARDIOVASCULAR Hx Cardio Disorders: Yes Hx Cardiac Cath: No Hx Hypertension: Yes Hx Vascular Disease: No - NEURO Hx Neuro Disorders: Yes Hx CVA: Yes 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, 2002, 2007) - GI Hx GI Disorders: Yes Hx Reflux: No Hx Wt Loss/Wt Gain: No - Hx Genitourinary Disorders: Yes Hx Bladder Problem: Yes Hx Dialysis: Yes Hx Renal Disease: Yes - ENDOCRINE Hx Endocrine Disorders: Yes Hx Diabetes: Yes - MUSCULOSKELETAL Hx Musculoskeletal Disorders: No 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 negative: Conjunctival injection, Periorbital swelling, Periorbital tenderness, Scleral icterus - ENT Ear exam: negative: Auricular hematoma, Auricular trauma Nasal Exam: negative: Active bleeding, Discharge, Dried blood, Foreign body Mouth exam: negative: Drooling, Laceration, Muffled voice, Tongue elevation - Neck Neck exam: Normal inspection. negative: Meningismus, Tenderness - Respiratory Respiratory exam: Normal lung sounds bilaterally. negative: Respiratory distress, Rhonchi, Stridor, Wheezes - Cardiovascular Cardiovascular Exam: Regular rate, Normal rhythm, Normal heart sounds - GI/Abdominal GI/Abdominal exam: Soft, Other (Numerous post-operative scars to the lower abdominal wall). negative: Rebound, Rigid, Tenderness - Rectal Rectal exam: Deferred - exam: Deferred - Extremities Extremities exam: Normal inspection, Other (Fistual right upper arm). negative: Pedal edema, Tenderness - Back Back exam: Denies: CVA tenderness (R), CVA tenderness (L) - Neurological Neurological exam: Alert, Normal gait, Oriented X3 - Psychiatric Psychiatric exam: Normal affect, Normal mood - Skin Skin exam: Normal color. negative: Abrasion Type of lesion: negative: abrasion Course Vital Signs 03/05/19 06:34 Temperature 97.5 F L Pulse Rate 71 Respiratory 18 Rate Blood Pressure 133/66 Pulse Ox 99 - Reevaluation(s) Reevaluation #1: 03/05/19 06:58 EKG: NSR 67 RBBB, no acute ST-T wave changes No change from 11/17/18 Reevaluation #2: 03/05/19 07:09 Bladder scan demonstrates >200 mL. Patient is attempting to void on his own at this time, will reassess. Reevaluation #3: 03/05/19 07:28 Patient's laboratory studies were reviewed and appear grossly unremarkable except for the following: Potassium 4.9 BUN 47 Creatinine 7.7 Hgb 11.3 Patient is able to urinate on his own at this time, catheterization does not appear indicated. Patient's laboratory studies were reviewed, does not require emergent dialysis at this time. Patient was instructed to call his [facility] blood bank this morning to be scheduled to run later today without fail. Patient and his verbalize understanding of all instructions. Medical Decision Making - Lab Data Result diagrams: 03/05/19 07:00 03/05/19 07:00 Disposition Disposition: Discharge Clinical Impression: Urinary retention Chronic renal failure Qualifiers: Chronic kidney disease stage: stage 5 Qualified Code(s): N18.5 - Chronic kidney disease, stage 5 Disposition: Home, Self-Care Condition: (2) Stable Instructions: End Stage Kidney Disease (ED) Additional Instructions: Return to ED if your symptoms worsen or if you have any concerns. Call your [employer] [employer] this morning without fail to receive dialysis later today without fail. Forms: Patient Portal Access Time of Disposition: 07:33 Quality - Quality Measures Quality Measures: N/A - Blood Pressure Screening Does Patient Have Any of the Following: No Blood Pressure Classification: Pre-Hypertensive BP Reading Systolic Measurement: 133 Diastolic Measurement: 66 Screening for High Blood Pressure: < Pre-Hypertensive BP, F/U Documented > [G8950] Pre-Hypertensive Follow-up Interventions: Referral to alternative/primary care provider.
[2019-03-05 07:12] LABS: ABSOLUTE NEUTROPHIL COUNT 4.11; BASO % 0.2 % (0-6); EOS % 2.2 % (0-6); GRAN % 76.6 % (47-80); HEMATOCRIT 35.9 % (42.0-52.0); HEMOGLOBIN 11.3 gm/dl (14.0-18.0); LYMPH % 15.6 % (16-45); MEAN CELL VOLUME 97.6 fl (81-97); MEAN CORPUSCULAR HEMOGLOBIN 30.7 pg (27-33); MEAN CORPUSCULAR HGB CONC 31.5 g/dl (32-36); MEAN PLATELET VOLUME 9.8 fl (7.4-10.4); MONO % 5.4 % (0-9); PLATELET COUNT 146 K/uL (130-400); RED BLOOD COUNT 3.68 M/uL (4.40-5.70); RED CELL DISTRIBUTION WIDTH 13.6 % (11.5-14.5); WHITE BLOOD COUNT W/O DIFF 5.4 K/uL (4.2-12.2)
[2019-03-05 07:20] LABS: URINE APPEARANCE SL CLOUDY; URINE BILIRUBIN NEGATIVE (NEGATIVE); URINE BLOOD LARGE (NEGATIVE); URINE COLOR YELLOW; URINE GLUCOSE (UA) NEGATIVE (NEGATIVE); URINE KETONE NEGATIVE (NEGATIVE); URINE LEUKOCYTE ESTERASE SMALL (NEGATIVE); URINE NITRITE NEGATIVE (NEGATIVE); URINE UROBILINOGEN 0.2 E.U./dL (0.20 - 1.00)
[2019-03-05 07:26] LABS: CREATININE 7.7 mg/dL (0.7-1.2)
[2019-03-05 07:29] LABS: URINE BACTERIA NONE SEEN; URINE EPITHELIAL CELLS 0 - 2 (FEW); URINE WBC 16 - 20 (0-2/hpf)
== END 2019-03-05 07:52 | disposition home or self-care (01) ==
LOC: ER 06:26
DX: R33.9 Retention of urine, unspecified (principal); E11.22 Type 2 diabetes mellitus with diabetic chronic kidney disease; I12.0 Hypertensive chronic kidney disease with stage 5 chronic kidney disease or end stage renal disease; N18.5 Chronic kidney disease, stage 5; R31.0 Gross hematuria; Z87.891 Personal history of nicotine dependence
CPT/HCPCS: 80048; 81001; 85025; 93005; 93010; 99284

== ENCOUNTER 2019-03-21 05:35 | Emergency (ER) | payer MEDICARE, OTHER ==
[2019-03-21] MEDS ORDERED: IPRATROPIUM/ALBUTEROL (0.5MG/3MG) NEB INH ONE (05:40)
[2019-03-21] MEDS ORDERED: PREDNISONE 20 MG TAB PO ONE (05:40)
[2019-03-21] MEDS ORDERED: AZITHROMYCIN 500 MG TABLET PO ONE (05:40)
--- NOTE | 2019-03-21 05:46 | Emergency Department Record ---
History of Present Illness - General Chief Complaint: Shortness of breath Stated Complaint: ALEX Time Seen by Provider: 03/21/19 05:39 Source: Patient, Family Mode of Arrival: Ambulatory Limitations: No limitations - History of Present Illness Initial Comments: 68 yo male presents with a cough overnight. He states he has been coughing since about 1am. He states he has had hot and cold feelings. He is a former smoker. No documented fever. He states he has had pneumonia several times in the past. No chest pain. He states it is tight with his breathing. No leg pain or swelling. His sputum has been clear so far. No blood. The patient is on HD Monday, and Monday. Dr Rogers is his PCP. He reports he has had to use and inhaler in the past with bronchitis or pneumonia but denies a formal diagnosis of COPD. MD Complaint: Cough, Shortness of breath -: Hour(s) Severity: Moderate Quality: Other Consistency: Constant Improves With: Nothing Worsens With: Coughing Known History Of: Recurrent pneumonia, Other (coughing) Context: Other Associated Symptoms: Cough - Related Data Previous Rx's Medication Instructions Recorded Albuterol Sulfate [Proair Hfa] 1 - 2 puff IH .EVERY 4-6 HOURS PRN 03/21/19 #1 inhaler Azithromycin [Zithromax] 250 mg PO DAILY #4 tab 03/21/19 Cefdinir [Omnicef] 300 mg PO BID #14 cap 03/21/19 Allergies Allergy/AdvReac Type Severity Reaction Status Date / Time amoxicillin [AMOXICILLIN] Allergy Severe NAUSEA AND Verified 03/21/19 05:42 VOMITING Review of Systems Constitutional: Reports: Chills, Fever (subjective). Denies: Malaise, Weakness Eyes: Denies: Eye discharge ENT: Reports: Congestion Respiratory: Reports: Cough, Dyspnea, Wheezes Cardiovascular: Denies: Chest pain, Dyspnea on exertion, Edema, Palpitations, Syncope Endocrine: Reports: Fatigue. Denies: Polydipsia, Polyuria Gastrointestinal: Denies: Abdominal pain, Diarrhea, Nausea, Vomiting Genitourinary: Denies: Dysuria, Frequency, Hematuria Musculoskeletal: Denies: Arthralgia, Back pain, Myalgia Skin: Denies: Bruising, Change in color, Rash Neurological: Denies: Headache Psychiatric: Denies: Anxiety Hematological/Lymphatic: Denies: Easy bleeding, Easy bruising Past Medical History - SOCIAL HISTORY Smoking Status: Former smoker Drug Use: Occasional Drug Use Detail:: Marijuana - RESPIRATORY Hx Respiratory Disorders: Yes Hx Pneumonia: Yes - CARDIOVASCULAR Hx Cardio Disorders: Yes Hx Cardiac Cath: No Hx Hypertension: Yes Hx Vascular Disease: No - NEURO Hx Neuro Disorders: Yes Hx CVA: Yes 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, 2002, 2007) - GI Hx GI Disorders: Yes Hx Reflux: No Hx Wt Loss/Wt Gain: No - Hx Genitourinary Disorders: Yes Hx Bladder Problem: Yes Hx Dialysis: Yes Hx Renal Disease: Yes - ENDOCRINE Hx Endocrine Disorders: Yes Hx Diabetes: Yes - MUSCULOSKELETAL Hx Musculoskeletal Disorders: No 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 negative: Conjunctival injection, Scleral icterus - ENT ENT exam: Normal exam, Mucous membranes moist, Normal orophraynx Ear exam: Normal external inspection Nasal Exam: Normal inspection Mouth exam: Normal external inspection - Neck Neck exam: Normal inspection - Respiratory Respiratory exam: Decreased breath sounds, Prolonged expiratory, Wheezes. negative: Normal lung sounds bilaterally, Accessory muscle use, Respiratory distress, Rhonchi, Stridor - Cardiovascular Cardiovascular Exam: Regular rate, Normal rhythm, Normal heart sounds - GI/Abdominal GI/Abdominal exam: Soft. negative: Tenderness - Rectal Rectal exam: Deferred - exam: Deferred - Extremities Extremities exam: Normal inspection. negative: Pedal edema, Tenderness - Back Back exam: Denies: CVA tenderness (R), CVA tenderness (L) - Neurological Neurological exam: Alert, Oriented X3 - Psychiatric Psychiatric exam: Normal affect, Normal mood - Skin Skin exam: Dry, Intact, Normal color, Warm Course - Reevaluation(s) Reevaluation #1: 03/21/19 05:46 Vitals were reviewed No tachycardia, hypoxia or fever His work of breathing is relaxed He does have end expiratory wheeze 03/21/19 06:01 After the Duoneb the patient was recheck. His air exchange was improved and the end expiratory wheeze was gone. His work of breathing is calm and he feels improved. 03/21/19 06:11 The CBC was reviewed. Chronic anemia The K is 4.8 Chronic renal failure. 03/21/19 06:14 Sputum in the ED has mild green color to it 03/21/19 06:21 Glucose is 108 The influenza are negative The patient is non labored with normal work of breathing. No fever, hypoxia or tachycardia. He is eating and drinking normally. He is doing well on his weight without signs of volume overload. He will be DC home with antibiotics and an inhaler. 03/21/19 06:26 RT to dispense Albuterol prior to DC Medical Decision Making - Lab Data Result diagrams: 03/21/19 05:55 03/21/19 05:55 Disposition Disposition: Discharge Clinical Impression: Bronchitis Pneumonia Qualifiers: Pneumonia type: due to unspecified organism Laterality: right Lung location: unspecified part of lung Qualified Code(s): J18.9 - Pneumonia, unspecified organism Disposition: Home, Self-Care Condition: (1) Good Instructions: Community Acquired Pneumonia (ED) Additional Instructions: Review this ER visit and the tests performed with your family doctor Call your doctor for the next available follow up appointment for a recheck Return to the ER for a recheck if worse, any new concerns or questions Take the prescriptions provided as directed Use the inhaler every 4 hours if you are having wheezing Prescriptions: Cefdinir [Omnicef] 300 mg PO BID #14 cap Albuterol Sulfate [Proair Hfa] 1 - 2 puff IH .EVERY 4-6 HOURS PRN #1 inhaler PRN Reason: Difficulty In Breathing Azithromycin [Zithromax] 250 mg PO DAILY #4 tab Forms: Patient Portal Access Time of Disposition: 06:21 Quality - Quality Measures Quality Measures: N/A - Blood Pressure Screening Does Patient Have Any of the Following: Active Dx of HTN Blood Pressure Classification: Hypertensive Reading Systolic Measurement: 155 Diastolic Measurement: 73 Screening for High Blood Pressure: Patient Exclusion, Hx of HTN [G9744]
[2019-03-21 05:59] LABS: BASO % 0.2 % (0-6); EOS % 1.6 % (0-6); GRAN % 70.1 % (47-80); HEMATOCRIT 34.4 % (42.0-52.0); HEMOGLOBIN 10.4 gm/dl (14.0-18.0); LYMPH % 21.3 % (16-45); MEAN CORPUSCULAR HEMOGLOBIN 30.2 pg (27-33); MEAN CORPUSCULAR HGB CONC 30.2 g/dl (32-36); MEAN PLATELET VOLUME 10.3 fl (7.4-10.4); MONO % 6.8 % (0-9); PLATELET COUNT 141 K/uL (130-400); RED BLOOD COUNT 3.44 M/uL (4.40-5.70); RED CELL DISTRIBUTION WIDTH 13.2 % (11.5-14.5); WHITE BLOOD COUNT W/O DIFF 4.4 K/uL (4.2-12.2)
[2019-03-21 06:07] LABS: CREATININE 5.9 mg/dL (0.7-1.2)
[2019-03-21] MEDS ORDERED: CEFDINIR 300 MG CAPSULE PO ONE (06:14)
[2019-03-21 06:16] LABS: INFLUENZA A NEGATIVE (NEGATIVE); INFLUENZA B NEGATIVE (NEGATIVE)
[2019-03-21] MEDS ORDERED: ALBUTEROL HFA 8 GM INHALER INH ONE (06:26)
--- NOTE | 2019-03-23 10:36 | RADIOLOGY REPORT ---
DATE: 03/21/2019. EXAM: TWO-VIEW CHEST RADIOGRAPH. HISTORY: COUGH WITH SPUTUM. TECHNIQUE: Two views of the chest. FINDINGS: The heart and pulmonary vessels are unremarkable. The diaphragm is low and flat consistent with chronic obstructive pulmonary disease. There is mild opacity of both medial lung bases. No pleural fluid is seen. IMPRESSION: 1. CHRONIC OBSTRUCTIVE PULMONARY DISEASE. 2. MILD BIBASILAR OPACITY SUSPICIOUS FOR MILD PNEUMONITIS. A SHORT-TERM FOLLOW-UP CHEST RADIOGRAPH IS RECOMMENDED IN TWO TO FOUR WEEKS. Job Number: [id number] MTDD
== END 2019-03-21 06:52 | disposition home or self-care (01) ==
LOC: ER 05:35
DX: J18.9 Pneumonia, unspecified organism (principal); I10 Essential (primary) hypertension; J44.9 Chronic obstructive pulmonary disease, unspecified; D50.0 Iron deficiency anemia secondary to blood loss (chronic); Z87.891 Personal history of nicotine dependence
CPT/HCPCS: 99284 ×2; 85025; 80048; 87400; 71046; 94640 ×2; 94664; J7512; J3490